=== PATIENT | female | born 1960 | race African-American/Black ===

== ENCOUNTER 2017-06-04 07:42 | Observation (INO) ==
[2017-06-04] MEDS ORDERED: HYDROmorphone 2 MG/1 ML VIAL IV STA (08:04)
[2017-06-04] MEDS ORDERED: ONDANSETRON 4 MG/2 ML VIAL IV STA (08:04)
--- NOTE | 2017-06-04 08:11 | Emergency Department Note ---
Arrival - Arrival Chief Complaint: Abdominal / Flank Pain Stated Complaint: stomach issue/nausea and vomiting ED Nursing Triage Note: llq abd pain with n/v that started yesterday. Mode of Arrival: Ambulatory Limitations: No Limitations Source: Patient, RN Notes Reviewed - History of Present Illness HPI Narrative: Patient is a 56-year-old black female routinely followed by Dr. Bowens who is seen today complaining of left lower quadrant abdominal pain. The patient was seen 2 days ago with the same complaint underwent a CT scan of the abdomen which revealed enlarging lymph nodes in her left lower quadrant in the periaortic area. Patient denies nausea or vomiting. Pain is unrelieved. Patient is scheduled to see Dr. Bowens this week. Onset (ago): week(s) Allergies/Adverse Reactions: Allergies Allergy/AdvReac Type Severity Reaction Status Date / Time No Known Allergies Allergy Verified 05/29/17 07:42 Home Medications: Home Medications Medication Instructions Recorded Confirmed Type Amlodipine Besylate 10 mg PO DAILY 06/29/16 06/04/17 History Loratadine Tab [Claritin Tab] 10 mg PO DAILY 06/29/16 06/04/17 History Ondansetron Odt Tab [Zofran Odt] 4 mg PO Q6H PRN 06/29/16 06/04/17 History Pantoprazole Tab [Protonix Tab] 40 mg PO BID 06/29/16 06/04/17 History Potassium Chloride Cap/Tab [K Dur] 20 meq PO BID 06/29/16 06/04/17 History Naloxegol Oxalate [Movantik] 25 mg PO DAILY #30 tablet 12/30/16 06/04/17 Rx Amitriptyline [Elavil] 10 mg PO DAILY 06/04/17 06/04/17 History Hydrocodone/Acetaminophen [[place] 1 each PO QID PRN 06/04/17 06/04/17 History 10-325 Tablet] Polyethylene Glycol Powder 17 gm PO QAM 06/04/17 06/04/17 History [Miralax] Zolpidem Tartrate [Ambien Cr] 12.5 mg PO BEDTIME 06/04/17 06/04/17 History Review of System - Review of System 12 point system: reviewed and no additional remarkable complaints except as stated - Review of System Constitutional: Absent: chills, fever Gastrointestinal: Present: abdominal pain. Absent: nausea, vomiting Medical,Surgical,& Family Hx - Medical History Cardio: History of: Hypertension Psychological: History of: Anxiety Disorders Respiratory: History of: Pulmonary Embolism Gastrointestinal: History of: Diverticulitis/ Diverticulosis, GERD Hematology: History of: Hematologic Cancer (non-Hodgkin's lymphoma) Other: History of: Miscellaneous Medical Problems (chronic back pain) - Surgical History Abdominal Surgeries: Surgical HX of: Cholecystectomy Reproductive Surgeries: Surgical HX of;: Hysterectomy Orthopedic Surgeries: Surgical HX of;: Orthopedic Surgery (carpal tunnel surgery ) - Social History Smoking Status: Never smoker Exam Vital Signs: Vital Signs Temperature 98.8 F 06/04/17 09:15 Pulse Rate 110 H 06/04/17 08:00 Respiratory Rate 18 06/04/17 08:00 Blood Pressure 146/94 06/04/17 08:00 O2 Sat by Pulse Oximetry 100 06/04/17 07:48 GENERAL: This is a well-nourished well-developed black female, thin in no apparent distress. VITAL SIGNS: Reviewed HEENT: Head is atraumatic and normocephalic. Pupils are equal round react to light. Extraocular movements are intact. Oropharynx is benign with moist mucous membranes. NECK: Neck is soft and supple without tenderness. There are no masses. There is no lymphadenopathy. LUNGS: Lungs are clear to auscultation. Chest rises symmetrically. There is no chest wall tenderness. CV: Heart is regular rate and rhythm without murmurs rubs or gallops. ABDOMEN: Abdomen is soft, tender to palpation left lower quadrant without rebound or guarding. There are no abdominal abnormal masses palpated. There is no organomegaly. Bowel sounds are present and active. SKIN: Skin is warm and dry. No rash. EXTREMITIES: Patient has full range of motion without tenderness. There is no pedal edema. NEUROLOGIC: Awake alert and oriented 4. Cranial nerves II through XII are grossly intact. Motor is 5 over 5 in all extremities bilaterally. Course - Consultations Consultation #1: Patient will be admitted to Dr. Bowens. Initial orders written for him. Care will be assumed by oncology upon arrival to the bob. Time: 10:13 Results - Labs CBC & BMP: 06/04/17 09:14 06/04/17 09:14 Lab Results: I have reviewed the patients labs - Diagnostic Findings Procedure: Abdominal x-ray: image reviewed by me (Nonspecific gas pattern, no free air, gas in the rectum.) Disposition Clinical Impression: CLL (chronic lymphocytic leukemia), Pelvic lymphadenopathy, Intractable left lower quadrant abdominal pain, Pyuria Case discussed with: patient Disposition: Still a Patient Condition: Stable
--- NOTE | 2017-06-04 09:00 | XRay Report ---
Abdomen series complete. Indication: Left lower quadrant abdominal pain. Comparison: June 02, 2017. The heart is normal in size. The lung bases are clear. No free air is identified. Surgical clips are noted in the right upper quadrant. The bowel gas pattern is normal. Surgical clips are noted within the pelvis. Numerous vascular calcifications are seen within the pelvis. Post operative changes with hardware present at the lower lumbar spine. Impression: No acute intra-abdominal process is seen. PROCEDURE INTERPRETED AT [facility] DEPARTMENT OF RADIOLOGY Final Report Signed by: Dr. Elsy Lees
[2017-06-04] MEDS ORDERED: HYDROmorphone 2 MG/1 ML VIAL ONE (09:22)
[2017-06-04] MEDS ORDERED: ONDANSETRON 4 MG/2 ML VIAL ONE (09:22)
[2017-06-04 09:28] LABS: Basophils % 0.3 % (0.0-0.8); Eosinophils % 0.1 % (0.00-10.9); Hematocrit 28.8 VOL% (35.7-47.0); Hemoglobin 10.2 GM/DL (12.0-16.0); Immature Granulocytes % 0.3 %; Immature Granulocytes Absolute 0.02 #; Lymphocytes # 3.2 10*3/uL (1.4-4.0); Lymphocytes % 46.9 % (21.3-54.2); Mean Corpuscular HGB Conc 35.4 GM/DL (32-36); Mean Corpuscular Hemoglobin 28 PG (27-34); Mean Corpuscular Volume 78.3 FL (87-102); Mean Platelet Volume 9.1 FL (9.6-12.0); Monocytes # 0.5 10*3/uL (0.11-0.8); Monocytes % 7.1 % (1.7-12.7); Neutrophils # 3.1 10*3/uL (1.4-7.4); Neutrophils % 45.3 % (38.7-73.9); Platelet Count 228 T/CUMM (130-400); Red Blood Count 3.68 MC/CUMM (3.8-5.5); Red Cell Distribution Width 16.9 % (9.3-17.3); White Blood Count 6.9 T/CUMM (4-12)
[2017-06-04 09:45] LABS: Apearance,Urine CLOUDY (Clear); Bacteria,Urine Occasional /HPF (Few); Bilirubin,Urine Negative (Negative); Blood, Urine Negative (Negative); Glucose,Urine (UA) 50 mg/dL (Negative); Ketones,Urine Negative (Negative); Mucus,Urine Occasional /LPF (Occasional); Nitrite,Urine Negative (Negative); Protein,Urine 100 MG/DL; RBC,Urine 6 /HPF (0-4); Squamous Epithelial Cell,Urine Moderate /HPF (0-10); Urine Color Yellow (Yellow); Urine Urobilinogen < 2.0 EU/DL (0.2-1.0); WBC,Urine 9 /HPF (0-6)
[2017-06-04 09:53] LABS: Albumin 4.4 G/DL (3.4-5.0); Bilirubin,Total 0.5 MG/DL (0.2-1.0); Calcium 9.3 MG/DL (8.5-10.1); Osmolality,Calculated 271.1 MOS/KG (273-304); Potassium 3.4 MMOL/L (3.5-5.1); Total Protein 8.2 G/DL (6.4-8.3)
[2017-06-04] MEDS ORDERED: cefTRIAXone 1,000 MG in SODIUM CHLORIDE 0.9% 100 ML IV STA (10:13)
[2017-06-04] MEDS ORDERED: cefTRIAXone 1,000 MG VIAL ONE (10:41)
[2017-06-04] MEDS ORDERED: chlorproMAZINE 25 MG TABLET PO PRN (12:00)
[2017-06-04] MEDS ORDERED: MYLANTA/LIDO VISC 2:1 300 ML BOTTLE SWISH/SWAL PRN (12:00)
[2017-06-04] MEDS ORDERED: LOPERAMIDE 2 MG CAPSULE PO PRN ×2 (12:00)
[2017-06-04] MEDS ORDERED: traMADol 50 MG TABLET PO PRN (12:00)
[2017-06-04] MEDS ORDERED: BENZTROPINE 2 MG/2 ML AMP IV PRN (12:00)
[2017-06-04] MEDS ORDERED: PROMETHAZINE INJ 25 MG in SODIUM CHLORIDE 0.9% 50 ML IV PRN (12:00)
[2017-06-04] MEDS ORDERED: MAGNESIUM HYDROXIDE SUSP 30 ML UDCUP PO PRN (12:00)
[2017-06-04] MEDS ORDERED: chlorproMAZINE INJ 25 MG in SODIUM CHLORIDE 0.9% 100 ML IV PRN (12:00)
[2017-06-04] MEDS ORDERED: TEMAZEPAM 7.5 MG CAPSULE PO PRN (12:00)
[2017-06-04] MEDS ORDERED: MYLANTA/LIDO VISC 2:1 300 ML BOTTLE SWISH/SPIT PRN (12:00)
[2017-06-04] MEDS ORDERED: chlorproMAZINE INJ 50 MG in SODIUM CHLORIDE 0.9% 100 ML IV PRN (12:00)
[2017-06-04] MEDS ORDERED: ALPRAZolam 0.25 MG TABLET PO PRN (12:00)
[2017-06-04] MEDS ORDERED: ACETAMINOPHEN 325 MG TABLET PO PRN (12:00)
[2017-06-04] MEDS ORDERED: guaiFENesin 200 MG/10 ML UDCUP PO PRN (12:00)
[2017-06-04] MEDS ORDERED: LACTULOSE 20 GM/30 ML UDCUP PO PRN (12:00)
[2017-06-04] MEDS ORDERED: diphenhydrAMINE CAP 25 MG CAPSULE PO PRN (12:00)
[2017-06-04] MEDS ORDERED: ALUMINUM/MAGNES/SIMETH MAX STR 30 ML UDCUP PO PRN (12:00)
[2017-06-04] MEDS ORDERED: ONDANSETRON 4 MG/2 ML VIAL IV PRN (12:00)
[2017-06-04] MEDS: SODIUM CHLORIDE 0.9% 1,000 ML IV SCH (15:15)
[2017-06-04] MEDS: HYDROmorphone 2 MG/1 ML VIAL IV PRN (17:55)
[2017-06-04] MEDS ORDERED: amLODIPine 10 MG TABLET PO ONE (20:37)
[2017-06-05] MEDS: SODIUM CHLORIDE 0.9% 1,000 ML IV SCH ×2 (01:25→15:43)
[2017-06-05] MEDS ORDERED: hydrALAZINE 25 MG TABLET PO SCH (02:00)
[2017-06-05] MEDS ORDERED: hydrALAZINE 25 MG TABLET PO PRN (03:30)
[2017-06-05 06:36] LABS: Basophils % 0.1 % (0.0-0.8); Eosinophils % 0.4 % (0.00-10.9); Hematocrit 26.7 VOL% (35.7-47.0); Hemoglobin 9.4 GM/DL (12.0-16.0); Immature Granulocytes % 0.3 %; Immature Granulocytes Absolute 0.02 #; Lymphocytes # 3.5 10*3/uL (1.4-4.0); Lymphocytes % 47.9 % (21.3-54.2); Mean Corpuscular HGB Conc 35.2 GM/DL (32-36); Mean Corpuscular Hemoglobin 27 PG (27-34); Mean Corpuscular Volume 77.8 FL (87-102); Mean Platelet Volume 9.1 FL (9.6-12.0); Monocytes # 0.9 10*3/uL (0.11-0.8); Monocytes % 12.9 % (1.7-12.7); Neutrophils # 2.8 10*3/uL (1.4-7.4); Neutrophils % 38.4 % (38.7-73.9); Platelet Count 209 T/CUMM (130-400); Red Blood Count 3.43 MC/CUMM (3.8-5.5); Red Cell Distribution Width 16.9 % (9.3-17.3); White Blood Count 7.2 T/CUMM (4-12)
[2017-06-05 07:22] LABS: Eosinophils 1 % (0-10); Giant Platelets Few; Hypochromasia 1+; Lymphocytes 44 % (20-55); Microcytosis Slight; Ovalocytes Slight; Platelet Estimate Adequate; Segmented Neutrophils 51 % (50-85); Total Cells Counted 100
[2017-06-05 07:23] LABS: Atypical Lymphocytes Few
[2017-06-05] MEDS: HYDROmorphone 2 MG/1 ML VIAL IV PRN ×2 (07:23→18:54)
--- NOTE | 2017-06-05 07:54 | Oncology History&Physical ---
History of Present Illness Chief complaint: Persistent abdominal pain unrelated to lymphoma History of present illness: Ms. 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 She has been on various treatments with the most recent one being Rituxan and bendamustine. She last received Rituxan 650 mg IV in June 2015 and bendamustine 160 mg IV daily 2 days at that same time. She has been to [facility] where she saw Dr. Patterson, who recommended IBRUTINIB 420 mg daily as the next treatment. However, she had an excellent and prolonged response to bendamustine and she really does not have a great deal of lymphadenopathy even at this time. She does have progressive cervical adenopathy and also her abdominal CT demonstrates abdominal and pelvic adenopathy but it is not bulky disease. She has had no splenomegaly. In addition she has had very little axillary adenopathy. The last time I saw her she had some lesions on her left breast and she was concerned about cancer but these were areas of folliculitis that cleared with topical therapy. Her last previous CT of the abdomen and pelvis was December 03, 2016. It was done at [facility]. The current CT was compared to previous ones done here and demonstrated progressive pelvic adenopathy which does not surprise me but again it is not bulky disease. This patient has had multiple workups for various types of abdominal pain in different locations. These have been done at [facility]. She ultimately had an appendectomy in late March or early April at [facility] under laparoscopic guidance that did not really alter her abdominal pain. She also has had upper and lower endoscopies. Gastroscopy was done January 23, 2017 and colonoscopy was done January 19, 2017 and neither 1 of these revealed any significant abnormalities. She had an appointment to see me later this week and I was making plans to resume chemotherapy because of the progressive adenopathy. However, I do not think it has anything to do with her abdominal pain. In addition of the pelvic adenopathy, she has had increasing cervical adenopathy. Past medical history: Allergies: She has no known allergies. Her past medical history is positive for depression, hyperlipidemia, hypertension, anxiety, TIAs, colon polyps and pulmonary emboli. Prior operations include the appendectomy earlier this year as well as a hysterectomy in 2004 and back surgery in 2017. Family history: A brother has diabetes mellitus and hypertension and "blood problems". Her mother has hypertension and "blood problems". Social history: She has never smoked. She does not use alcohol. Review of systems: General: Positive for generalized weakness, malaise and an 8 pound weight loss over about 6 months. No recent history of fever or night sweats. Eyes: No history of abnormalities of the lids or conjunctivae. She has had blurred vision. ENT: Positive for a lump in the throat. Negative for dysphagia, hoarseness, mouth sores, odynophagia and sore tongue. Respiratory: Negative for cough, pleuritic chest pain or painful respirations. Cardiovascular: Positive for chest pain and irregular heartbeat but negative for coronary artery disease or congestive heart failure. GI: Positive for abdominal pain and bloating. See physical examination. Negative for palpable abdominal mass, nausea or vomiting although she says that she vomited last night. Neurologic: Negative for syncope or focal muscle weakness in spite of the history of TIA. No history of seizures, convulsions or paralysis. Reproductive: Negative for breast lumps but positive for folliculitis on her left breast. She is postmenopausal. Lymphatic: Positive for increasing bilateral cervical adenopathy but not for axillary adenopathy or inguinal adenopathy. Hematologic: She has a history of chronic anemia but no thrombocytopenia or neutropenia. Skin: No history of rashes other than the resolving folliculitis on her left breast. Physical examination: General: The patient really does not appear to be in any acute distress although she complains of abdominal pain. Eyes: Normal lids and conjunctivae. ENT: Her oral mucosa and pharynx are normal. Her hearing is normal. Her trachea is midline and she has no neck masses. Lungs: Breath sounds are normal without rubs, rales or rhonchi. There is symmetrical unlabored chest motion with respiration. Cardiovascular: Her heart rhythm is regular without murmur, gallop or rub. There is no jugular venous distention, clubbing or cyanosis. Abdomen: She has several scars on her abdomen including recent laparoscopic appendectomy scars. Bowel sounds are normal. I palpate no abdominal masses or organomegaly and no ascites. Musculoskeletal: There is no focal muscle atrophy or bone or joint deformity. Neurologic: Cranial nerves II through XII are intact. The no focal neurologic deficits. Nodes: The patient has bilateral cervical adenopathy both in the anterior and posterior chains as well as submandibular adenopathy. There is perhaps some slight supraclavicular adenopathy. I palpate one enlarged lymph node in the right axilla but no other adenopathy. Breasts: No masses. Psychiatric: The patient is anxious as usual and somewhat apprehensive. Impression: Persistent abdominal pain that in my opinion is unrelated to the patient's lymphoma and I think is made worse by the fact that she has a low pain threshold. Diffuse small lymphocytic non-Hodgkin's lymphoma responding well to bendamustine. CD20 positive. History of anxiety. History of depression. History of colon polyps. Recent appendectomy. This patient has a long history of abdominal pain that is unrelated to her lymphoma. My plan is to discharge her today and arrange for her to return for chemotherapy later this week. I will proceed with Rituxan 800 mg IV today along with dexamethasone 40 mg IV. My plan will be to proceed with bendamustine daily 2 days at a dose of 160 mg IV each day for 2 days repeated every 4 weeks. I am discharging her after this treatment today using dexamethasone and Rituxan I will set her up for outpatient chemotherapy with bendamustine at my office and a follow-up office visit to see me in about 3 weeks with CBC, CMP and LDH. Home Medications Medication Instructions Recorded Confirmed Type Amlodipine Besylate 10 mg PO DAILY 06/29/16 06/04/17 History Loratadine Tab [Claritin Tab] 10 mg PO DAILY 06/29/16 06/04/17 History Ondansetron Odt Tab [Zofran Odt] 4 mg PO Q6H PRN 06/29/16 06/04/17 History Pantoprazole Tab [Protonix Tab] 40 mg PO BID 06/29/16 06/04/17 History Potassium Chloride Cap/Tab [K Dur] 20 meq PO BID 06/29/16 06/04/17 History Naloxegol Oxalate [Movantik] 25 mg PO DAILY #30 tablet 12/30/16 06/04/17 Rx Amitriptyline [Elavil] 10 mg PO DAILY 06/04/17 06/04/17 History Hydrocodone/Acetaminophen [[place] 1 each PO QID PRN 06/04/17 06/04/17 History 10-325 Tablet] Polyethylene Glycol Powder 17 gm PO QAM 06/04/17 06/04/17 History [Miralax] Zolpidem Tartrate [Ambien Cr] 12.5 mg PO BEDTIME 06/04/17 06/04/17 History Allergies Allergy/AdvReac Type Severity Reaction Status Date / Time No Known Allergies Allergy Verified 05/29/17 07:42 Medical,Surgical,& Family Hx - Medical History Cardio: History of: Hypertension Psychological: History of: Anxiety Disorders Respiratory: History of: Pulmonary Embolism Gastrointestinal: History of: Diverticulitis/ Diverticulosis, GERD No history of: GI Problems Hematology: History of: Hematologic Cancer (non-Hodgkin's lymphoma) Other: History of: Cancer (CLL), Miscellaneous Medical Problems (chronic back pain) - Surgical History Abdominal Surgeries: Surgical HX of: Cholecystectomy Reproductive Surgeries: Surgical HX of;: Hysterectomy Orthopedic Surgeries: Surgical HX of;: Orthopedic Surgery (carpal tunnel surgery ) - Social History Smoking Status: Never smoker Frequency of Alcohol Use: None Type of Drug Use: None Exam - Constitutional Vitals: Period Temp Pulse Resp BP Sys/Dunne Pulse Ox Last 24 Hr 97 F-98.8 F 85-110 16-22 146-190/89-109 93-100 Results - Labs CBC & BMP: 06/05/17 05:57 06/04/17 09:14
[2017-06-05] MEDS: amLODIPine 10 MG TABLET PO SCH (08:57)
[2017-06-05] MEDS ORDERED: RITUXIMAB IV ONE (13:30)
[2017-06-05] MEDS ORDERED: FOSAPREPITANT 150 MG in SODIUM CHLORIDE 0.9% 100 ML IV ONE (13:30)
[2017-06-05] MEDS ORDERED: DEXAMETHASONE INJ 40 MG in SODIUM CHLORIDE 0.9% 50 ML IV ONE (13:30)
[2017-06-05] MEDS ORDERED: SODIUM CHLORIDE 0.9% IV ONE (13:30)
[2017-06-05] MEDS ORDERED: PALONOSETRON 0.25 MG/5 ML VIAL IV ONE (13:30)
[2017-06-05] MEDS ORDERED: ACETAMINOPHEN 325 MG TABLET PO ONE (13:35)
[2017-06-05] MEDS ORDERED: diphenhydrAMINE CAP 50 MG CAPSULE PO ONE (13:35)
[2017-06-06] MEDS: amLODIPine 10 MG TABLET PO SCH (07:57)
[2017-06-06 08:32] VITALS: BP 141/98
== END 2017-06-06 10:25 | disposition home or self-care (01) ==
LOC: N.ED 07:42 → N.EDINP 07:42 → N.4E 11:59
PROVIDERS: ADMIT Specialist; ATTEND Specialist

== ENCOUNTER 2017-06-10 08:45 | Inpatient (IN) ==
[2017-06-10 06:59] LABS: Basophils % 0.2 % (0.0-0.8); Eosinophils # 0.1 10*3/uL (0.0-0.87); Eosinophils % 0.9 % (0.00-10.9); Immature Granulocytes % 0.3 %; Immature Granulocytes Absolute 0.02 #; Lymphocytes # 1.3 10*3/uL (1.4-4.0); Lymphocytes % 20.4 % (21.3-54.2); Mean Corpuscular HGB Conc 36.5 GM/DL (32-36); Mean Corpuscular Hemoglobin 28 PG (27-34); Mean Corpuscular Volume 77.1 FL (87-102); Mean Platelet Volume 9.6 FL (9.6-12.0); Monocytes # 0.2 10*3/uL (0.11-0.8); Monocytes % 3.5 % (1.7-12.7); Neutrophils # 4.9 10*3/uL (1.4-7.4); Neutrophils % 74.7 % (38.7-73.9); Platelet Count 220 T/CUMM (130-400); Red Blood Count 1.92 MC/CUMM (3.8-5.5); Red Cell Distribution Width 17.1 % (9.3-17.3); White Blood Count 6.6 T/CUMM (4-12)
[2017-06-10 07:04] LABS: Apearance,Urine Slightly Hazy (Clear); Bacteria,Urine Occasional /HPF (Few); Bilirubin,Urine Negative (Negative); Blood, Urine Small mg/dL (Negative); Glucose,Urine (UA) Negative (Negative); Ketones,Urine Negative (Negative); Mucus,Urine Occasional /LPF (Occasional); Nitrite,Urine Negative (Negative); Protein,Urine Negative; RBC,Urine 4 /HPF (0-4); Squamous Epithelial Cell,Urine Occasional /HPF (0-10); Urine Color Yellow (Yellow); Urine Urobilinogen < 2.0 EU/DL (0.2-1.0); WBC,Urine 33 /HPF (0-6)
[2017-06-10 07:13] LABS: Hematocrit 14.8 VOL% (35.7-47.0); Hemoglobin 5.4 GM/DL (12.0-16.0)
[2017-06-10 07:25] LABS: Alanine Aminotransferase 10 U/L (13-56); Albumin 3.5 G/DL (3.4-5.0); Alkaline Phosphatase 76 U/L (45-117); Aspartate Amino Transferase 11 U/L (0-37); Bilirubin,Total < 0.39 MG/DL (0.2-1.0); Blood Urea Nitrogen 29 MG/DL (7-18); Calcium 7.3 MG/DL (8.5-10.1); Glucose 102 MG/DL (74-106); Osmolality,Calculated 278.8 MOS/KG (273-304); Sodium 137 MMOL/L (136-145)
[2017-06-10 07:26] LABS: Lactic Acid 0.7 MMOL/L (0.4-2.0)
[2017-06-10 08:05] LABS: Eosinophils 1 % (0-10); Giant Platelets Few; Hypochromasia 1+; Lymphocytes 15 % (20-55); Microcytosis Slight; Ovalocytes Slight; Platelet Estimate Adequate; Segmented Neutrophils 82 % (50-85); Total Cells Counted 100
--- NOTE | 2017-06-10 08:44 | Emergency Department Note ---
Fernando Pineda Brittany, am scribing for, and in the presence of, Rinku Kimble MD 06:12. Lamin Pineda Doug C, MD, personally performed the services described in this documentation, ascribed by Maryuri King in my presence, and it is both accurate and complete [id number] . Arrival - Arrival Chief Complaint: Abdominal / Flank Pain Stated Complaint: stomach issues ED Nursing Triage Note: AMB TO ER WITH COMPLAINTS OF STOMACH CRAMPS, NAUSEA AND DIARRHEA SINCE LAST MONDAY AFTER DISCHARGE FROM HOSPITAL. PATIENT STATES SHE STAYED OVERNIGHT FOR SAME SYMPTOMS BUT ONLY GOT ONE MEDICINE AND IT DIDNT HELP ANY. Mode of Arrival: Ambulatory Limitations: No Limitations Source: Patient, RN Notes Reviewed Time Seen by Provider: 06/10/17 06:00 - History of Present Illness HPI Narrative: Patient 56-year-old black female presents emergency room complaining of abdominal pain. Patient states this has been going off and on for almost a year now. It has gotten more intense in the last 3 months and patient states she was recently admitted to the hospital and discharged for same problem. Patient states the pain is diffuse but mostly in her upper abdomen. She has nausea, vomiting and diarrhea with this as well as weight loss. She does have a history of non-Hodgkin's lymphoma and is receiving chemotherapy. She has not had any fever or chills associated with this. She denies any blood in her stool or had any melena. Allergies/Adverse Reactions: Allergies Allergy/AdvReac Type Severity Reaction Status Date / Time No Known Allergies Allergy Verified 06/10/17 05:24 Home Medications: Home Medications Medication Instructions Recorded Confirmed Type Amlodipine Besylate 10 mg PO DAILY 06/29/16 06/04/17 History Loratadine Tab [Claritin Tab] 10 mg PO DAILY 06/29/16 06/06/17 History Ondansetron Odt Tab [Zofran Odt] 4 mg PO Q6H PRN 06/29/16 06/06/17 History Pantoprazole Tab [Protonix Tab] 40 mg PO BID 06/29/16 06/04/17 History Amitriptyline [Elavil] 10 mg PO DAILY 06/04/17 06/06/17 History Hydrocodone/Acetaminophen [[place] 1 each PO QID PRN 06/04/17 06/06/17 History 10-325 Tablet] Zolpidem Tartrate [Ambien Cr] 12.5 mg PO BEDTIME 06/04/17 06/06/17 History Dicyclomine Cap/Tab [Bentyl 20 mg PO QID PRN #20 tablet 06/07/17 Rx Cap/Tab] Ondansetron [Ondansetron Odt] 8 mg PO Q4H PRN #10 tab.rapdis 06/07/17 Rx Levofloxacin Tab [Levaquin Tab] 250 mg PO DAILY #7 tablet 06/10/17 Rx Review of System - Review of System 12 point system: reviewed and no additional remarkable complaints except as stated - Review of System Constitutional: Absent: chills, fever Eyes: Absent: vision change Head/Ears/Nose/Throat: Absent: nasal drainage, sore throat Respiratory: Absent: respiratory distress Cardiovascular: Absent: chest pain Gastrointestinal: Present: abdominal pain, nausea, vomiting, diarrhea. Absent: melena, hematochezia Genitourinary female: Absent: dysuria, frequency, urgency Musculoskeletal: Absent: arm pain, back pain, leg pain, neck pain Skin: Absent: rash Neurological: Absent: headache Psychiatric: Absent: anxiety, depression Hematological/Lymphatic: Absent: easy bleeding, easy bruising Medical,Surgical,& Family Hx - Medical History Cardio: History of: Hypertension Psychological: History of: Anxiety Disorders Respiratory: History of: Pulmonary Embolism Gastrointestinal: History of: Diverticulitis/ Diverticulosis, GERD No history of: GI Problems Hematology: History of: Hematologic Cancer (non-Hodgkin's lymphoma) Other: History of: Cancer (CLL), Miscellaneous Medical Problems (chronic back pain) - Surgical History Abdominal Surgeries: Surgical HX of: Appendectomy, Cholecystectomy Reproductive Surgeries: Surgical HX of;: Hysterectomy Orthopedic Surgeries: Surgical HX of;: Orthopedic Surgery (carpal tunnel surgery ) - Social History Smoking Status: Never smoker Frequency of Alcohol Use: None Type of Drug Use: None Exam Vital Signs: Vital Signs Temperature 97.3 F L 06/10/17 05:18 Pulse Rate 92 H 06/10/17 05:18 Respiratory Rate 18 06/10/17 05:18 Blood Pressure 122/92 06/10/17 05:18 O2 Sat by Pulse Oximetry 97 06/10/17 05:18 - General General appearance: alert, in no apparent distress - Head Head exam: Present: atraumatic, normocephalic, normal inspection - Eye Eye exam: Present: PERRL, EOMI - ENT ENT exam: Present: normal exam, normal oropharynx, mucous membranes moist - Neck Neck exam: Present: normal inspection, full ROM, trachea midline - Chest Chest inspection: Present: normal inspection, symmetric chest wall rise - Respiratory Respiratory exam: Present: normal lung sounds bilaterally. Absent: respiratory distress - Cardiovascular Cardiovascular exam: Present: regular rate, normal rhythm, normal heart sounds. Absent: murmur, rubs, gallop - Abdominal Exam Abdominal exam: Present: soft, tenderness (Diffuse abdominal tenderness to palpation), normal bowel sounds. Absent: distention - Extremities Exam Extremities exam: Present: normal inspection. Absent: pedal edema - Back Exam Back exam: Present: normal inspection - Neurological Exam Neurological exam: Present: alert, oriented X3, CN II-XII intact. Absent: motor sensory deficit - Psychiatric Psychiatric exam: Present: normal affect, normal mood - Skin Skin exam: Present: warm, dry Course Course Narrative: Patient's clinical presentation and laboratory findings were discussed with Dr. Bowens. Patient certainly has a urinary tract infection for which I will begin treatment for her. He asked that she follow-up with her GI doctors at [facility] concerning her persistent abdominal pain and he is going to admit her throughout patient give her 3 units of packed red blood cells. Results - Labs CBC & BMP: 06/10/17 06:39 06/10/17 06:39 Lab Results: I have reviewed the patients labs Labs: Laboratory Tests 06/10/17 06:39 Urine Color Yellow Urine Appearance Slightly hazy Urine pH 5.0 Ur Specific [place] 1.010 Urine Protein Negative Urine Glucose (UA) Negative Urine Ketones Negative Urine Blood Small Urine Nitrate Negative Urine Bilirubin Negative Urine Urobilinogen < 2.0 H Urine Leukocytes Large H Urine RBC 4 Urine WBC 33 Ur Squamous Epith Cells Occasional Urine Bacteria Occasional Urine Mucus Occasional Laboratory Tests 06/10/17 06:39 WBC 6.6 RBC 1.92 L Hgb 5.4 L* Hct 14.8 L* MCV 77.1 L MCHC 36.5 H Plt Count 220 Neut % (Auto) 74.7 H Lymph % (Auto) 20.4 L Lymph # (Auto) 1.3 L Laboratory Tests 06/10/17 06:39 Sodium 137 Potassium 3.0 L Chloride 103 Carbon Dioxide 24 BUN 29 H Creatinine 2.20 H Glucose 102 Lactic Acid 0.7 Calcium 7.3 L D ALT 10 L Albumin/Globulin Ratio 1.0 L Lipase 749.0 H Laboratory Tests 06/10/17 06/10/17 06/10/17 06:39 06:39 06:39 Total Counted 100 Segmented Neutrophils 82 Lymphocytes 15 L Monocytes 2 Eosinophils 1 Platelet Estimate Adequate Giant Platelets Few Hypochromasia 1+ Microcytosis Slight Ovalocytes Slight ESR Westergren 33 H C-Reactive Protein 1.80 H Disposition Clinical Impression: Abdominal pain, Anemia, History of non-Hodgkin's lymphoma Case discussed with: patient Disposition: Still a Patient Condition: Stable Prescriptions: Levofloxacin Tab [Levaquin Tab] 250 mg PO DAILY #7 tablet Time of Disposition: 08:42
[~2017-06-10 08:45] MED LIST: ONDANSETRON 4 MG/2 ML VIAL IV STA; ONDANSETRON 4 MG/2 ML VIAL ONE; SODIUM CHLORIDE 0.9% 1,000 ML IV STA; SODIUM CHLORIDE 0.9% 250 ML IV PRN
--- NOTE | 2017-06-10 10:36 | Oncology Progress Note ---
Oncology Subjective PN Interval history: This is a progress note on Ms. Lyle who is here outpatient for blood transfusion. She has non-Hodgkin's lymphoma and she has a history of GI bleeding but she is followed at [place] her GI problems. She has chronic GI pains of various types. Her hemoglobin today is 5.4 so we are going to transfuse 3 units of packed red cells. Her white cell count is normal at 6600 and her platelet count is 220, 000. She has an elevated lipase of 749. In addition, her serum creatinine today is 2.2. This is a portion of my dictation from her last admission of less than a month ago: Ms. 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 She has been on various treatments with the most recent one being Rituxan and bendamustine. She last received Rituxan 650 mg IV in June 2015 and bendamustine 160 mg IV daily 2 days at that same time. She has been to [place] where she saw Dr. Patterson, who recommended IBRUTINIB 420 mg daily as the next treatment. However, she had an excellent and prolonged response to bendamustine and she really does not have a great deal of lymphadenopathy even at this time. She does have progressive cervical adenopathy and also her abdominal CT demonstrates abdominal and pelvic adenopathy but it is not bulky disease. She has had no splenomegaly. In addition she has had very little axillary adenopathy. This patient has had a significant drop in her hemoglobin and I am concerned about intra-abdominal pathology. I do not intend to take over her evaluation by her culled fruit packer and surgeon at [place] but I am going to go ahead and order a CT of her abdomen and pelvis with contrast tomorrow. In addition, I am repeating her lipase tomorrow because it is elevated. Past medical history: Allergies: She has no known allergies. Her past medical history is positive for depression, hyperlipidemia, hypertension, anxiety, TIAs, colon polyps and pulmonary emboli. Prior operations include the appendectomy earlier this year as well as a hysterectomy in 2005 and back surgery in 2017. Family history: A brother has diabetes mellitus and hypertension and "blood problems". Her mother has hypertension and "blood problems". Social history: She has never smoked. She does not use alcohol. Review of systems: General: Positive for generalized weakness, malaise and an 8 pound weight loss over about 6 months. No recent history of fever or night sweats. Eyes: No history of abnormalities of the lids or conjunctivae. She has had blurred vision. ENT: Positive for a lump in the throat. Negative for dysphagia, hoarseness, mouth sores, odynophagia and sore tongue. Respiratory: Negative for cough, pleuritic chest pain or painful respirations. Cardiovascular: Positive for chest pain and irregular heartbeat but negative for coronary artery disease or congestive heart failure. GI: Positive for abdominal pain and bloating. See physical examination. Negative for palpable abdominal mass, nausea or vomiting although she says that she vomited last night. Neurologic: Negative for syncope or focal muscle weakness in spite of the history of TIA. No history of seizures, convulsions or paralysis. Reproductive: Negative for breast lumps but positive for folliculitis on her left breast. She is postmenopausal. Lymphatic: Positive for increasing bilateral cervical adenopathy but not for axillary adenopathy or inguinal adenopathy. Hematologic: She has a history of chronic anemia but no thrombocytopenia or neutropenia. Skin: No history of rashes other than the resolving folliculitis on her left breast. Physical examination: General: The patient really does not appear to be in any acute distress although she complains of abdominal pain. Eyes: Normal lids and conjunctivae. ENT: Her oral mucosa and pharynx are normal. Her hearing is normal. Her trachea is midline and she has no neck masses. Lungs: Breath sounds are normal without rubs, rales or rhonchi. There is symmetrical unlabored chest motion with respiration. Cardiovascular: Her heart rhythm is regular without murmur, gallop or rub. There is no jugular venous distention, clubbing or cyanosis. Abdomen: She has several scars on her abdomen including recent laparoscopic appendectomy scars. Bowel sounds are normal. I palpate no abdominal masses or organomegaly and no ascites. Musculoskeletal: There is no focal muscle atrophy or bone or joint deformity. Neurologic: Cranial nerves II through XII are intact. The no focal neurologic deficits. Nodes: The patient has bilateral cervical adenopathy both in the anterior and posterior chains as well as submandibular adenopathy. There is perhaps some slight supraclavicular adenopathy. I palpate one enlarged lymph node in the right axilla but no other adenopathy. Breasts: No masses. Psychiatric: The patient is anxious as usual and somewhat apprehensive. Impression: Significant drop in hemoglobin, probably due to GI blood loss This patient has multifactorial abdominal pain, some which is purely gastrointestinal and not in my field of expertise but she has an elevated lipase on this admission and probably has pancreatitis. This patient has a CD20 positive non-Hodgkin's lymphoma but is not currently on active treatment Exam - Constitutional Vitals: Period Temp Pulse Resp BP Sys/Dunne Pulse Ox Last 24 Hr 97.3 F-97.3 F 78-92 18-20 122-161/92-98 97-98 Results - Labs CBC & BMP: 06/11/17 04:48 06/11/17 04:48 Specialty Discharge - Follow Up or Referrals
[2017-06-10] MEDS ORDERED: LEVOFLOXACIN INJ 750 MG in PREMIX 1 EACH IV ONE (10:37)
--- NOTE | 2017-06-10 10:51 | XRay Report ---
History is abdominal pain Abdomen, 2 views Comparison 06/04/2017 There are clips in the right upper quadrant Mild air scattered in the bowel without small bowel dilatation, free air, or organomegaly seen Pelvic calcifications grossly unchanged Impression: Nonspecific bowel gas pattern PROCEDURE INTERPRETED AT [facility] DEPARTMENT OF RADIOLOGY Final Report Signed by: Dr. Stormy Lees
[2017-06-10] MEDS: HYDROmorphone 2 MG/1 ML VIAL IV PRN ×3 (11:03→19:28)
[2017-06-10] MEDS ORDERED: MAGNESIUM HYDROXIDE SUSP 30 ML UDCUP PO PRN (12:41)
[2017-06-10] MEDS ORDERED: chlorproMAZINE INJ 50 MG in SODIUM CHLORIDE 0.9% 100 ML IV PRN (12:41)
[2017-06-10] MEDS ORDERED: ACETAMINOPHEN 325 MG TABLET PO PRN (12:41)
[2017-06-10] MEDS ORDERED: LACTULOSE 20 GM/30 ML UDCUP PO PRN (12:41)
[2017-06-10] MEDS ORDERED: chlorproMAZINE 25 MG TABLET PO PRN (12:41)
[2017-06-10] MEDS ORDERED: MYLANTA/LIDO VISC 2:1 300 ML BOTTLE SWISH/SWAL PRN (12:41)
[2017-06-10] MEDS ORDERED: diphenhydrAMINE CAP 25 MG CAPSULE PO PRN (12:41)
[2017-06-10] MEDS ORDERED: guaiFENesin 200 MG/10 ML UDCUP PO PRN (12:41)
[2017-06-10] MEDS ORDERED: ALUMINUM/MAGNES/SIMETH MAX STR 30 ML UDCUP PO PRN (12:41)
[2017-06-10] MEDS ORDERED: LOPERAMIDE 2 MG CAPSULE PO PRN ×2 (12:41)
[2017-06-10] MEDS ORDERED: PROMETHAZINE INJ 25 MG in SODIUM CHLORIDE 0.9% 50 ML IV PRN (12:41)
[2017-06-10] MEDS ORDERED: TEMAZEPAM 7.5 MG CAPSULE PO PRN (12:41)
[2017-06-10] MEDS ORDERED: traMADol 50 MG TABLET PO PRN (12:41)
[2017-06-10] MEDS ORDERED: BENZTROPINE 2 MG/2 ML AMP IV PRN (12:41)
[2017-06-10] MEDS ORDERED: MYLANTA/LIDO VISC 2:1 300 ML BOTTLE SWISH/SPIT PRN (12:41)
[2017-06-10] MEDS ORDERED: ALPRAZolam 0.25 MG TABLET PO PRN (12:41)
[2017-06-10] MEDS ORDERED: chlorproMAZINE INJ 25 MG in SODIUM CHLORIDE 0.9% 100 ML IV PRN (12:41)
[2017-06-10] MEDS: ONDANSETRON 4 MG/2 ML VIAL IV PRN (12:57)
[2017-06-10] MEDS ORDERED: ONDANSETRON ODT 4 MG TABLET PO PRN ×2 (19:53)
[2017-06-10] MEDS: PANTOPRAZOLE 40 MG TABLET PO SCH (21:00)
[2017-06-10] MEDS: ZALEPLON 5 MG CAPSULE PO SCH (21:00)
[2017-06-10] MEDS: DEXTROSE 5% NACL 0.45% 1,000 ML IV SCH (23:21)
[2017-06-11] MEDS: HYDROmorphone 2 MG/1 ML VIAL IV PRN ×6 (01:27→22:08)
[2017-06-11] MEDS: DICYCLOMINE 20 MG TABLET PO PRN ×2 (03:20→09:12)
[2017-06-11 05:41] LABS: Basophils % 0.4 % (0.0-0.8); Eosinophils # 0.1 10*3/uL (0.0-0.87); Eosinophils % 1.1 % (0.00-10.9); Hematocrit 35.9 VOL% (35.7-47.0); Hemoglobin 13.1 GM/DL (12.0-16.0); Immature Granulocytes % 1.9 %; Immature Granulocytes Absolute 0.09 #; Lymphocytes # 0.5 10*3/uL (1.4-4.0); Lymphocytes % 10.8 % (21.3-54.2); Mean Corpuscular HGB Conc 36.5 GM/DL (32-36); Mean Corpuscular Hemoglobin 29 PG (27-34); Mean Corpuscular Volume 79.1 FL (87-102); Mean Platelet Volume 9.8 FL (9.6-12.0); Monocytes % 0.8 % (1.7-12.7); Platelet Count 151 T/CUMM (130-400); Red Blood Count 4.54 MC/CUMM (3.8-5.5); Red Cell Distribution Width 16.7 % (9.3-17.3); White Blood Count 4.7 T/CUMM (4-12)
[2017-06-11 06:22] LABS: Albumin 3.1 G/DL (3.4-5.0); Bilirubin,Total 1.1 MG/DL (0.2-1.0); Osmolality,Calculated 277.7 MOS/KG (273-304); Potassium 3.1 MMOL/L (3.5-5.1)
[2017-06-11 06:42] LABS: Lymphocytes 11 % (20-55); Platelet Estimate Normal; Segmented Neutrophils 88 % (50-85); Total Cells Counted 100
[2017-06-11 06:43] LABS: Giant Platelets Few; Hypochromasia 1+; Microcytosis Slight
[2017-06-11 08:44] LABS: Uric Acid 8.8 MG/DL (2.6-6.0)
[2017-06-11] MEDS: AMITRIPTYLINE 10 MG TABLET PO SCH (09:11)
[2017-06-11] MEDS: amLODIPine 10 MG TABLET PO SCH (09:11)
--- NOTE | 2017-06-11 09:11 | Oncology History&Physical ---
History of Present Illness History of present illness: Ms. Lyle is a 56 year old female anemia and lymphoma. This is a history and physical on Ms. Lyle who I decided to admit because of multiple problems including the fact that she has non-Hodgkin's lymphoma and she has a history of GI bleeding but she is followed at [place] her GI problems. She has chronic GI pains of various types. However, her hemoglobin yesterday was 5.4 so we transfused 3 units of packed red cells. Her white cell count is normal at 6600 and her platelet count is 220,000. She has an elevated lipase of 749. In addition, her serum creatinine today is 2.2. This is the reason we are dictating history and physical and admitting her is regular patient. This is a portion of my dictation from her last admission of less than a month ago: Ms. 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 She has been on various treatments with the most recent one being Rituxan and bendamustine. She last received Rituxan 650 mg IV in June 2015 and bendamustine 160 mg IV daily 2 days at that same time. She has been to [place] where she saw Dr. Patterson, who recommended IBRUTINIB 420 mg daily as the next treatment. However, she had an excellent and prolonged response to bendamustine and she really does not have a great deal of lymphadenopathy even at this time. She does have progressive cervical adenopathy and also her abdominal CT demonstrates abdominal and pelvic adenopathy but it is not bulky disease. She has had no splenomegaly. In addition she has had very little axillary adenopathy. This patient has had a significant drop in her hemoglobin and I am concerned about intra-abdominal pathology. I do not intend to take over her evaluation by her tennis director and surgeon at [place] but I am going to go ahead and order a CT of her abdomen and pelvis with contrast tomorrow. In addition, I am repeating her lipase tomorrow because it is elevated. Past medical history: Allergies: She has no known allergies. Her past medical history is positive for depression, hyperlipidemia, hypertension, anxiety, TIAs, colon polyps and pulmonary emboli. Prior operations include the appendectomy earlier this year as well as a hysterectomy in 2005 and back surgery in 2017. Family history: A brother has diabetes mellitus and hypertension and "blood problems". Her mother has hypertension and "blood problems". Social history: She has never smoked. She does not use alcohol. Review of systems: General: Positive for generalized weakness, malaise and an 8 pound weight loss over about 6 months. No recent history of fever or night sweats. Eyes: No history of abnormalities of the lids or conjunctivae. She has had blurred vision. ENT: Positive for a lump in the throat. Negative for dysphagia, hoarseness, mouth sores, odynophagia and sore tongue. Respiratory: Negative for cough, pleuritic chest pain or painful respirations. Cardiovascular: Positive for chest pain and irregular heartbeat but negative for coronary artery disease or congestive heart failure. GI: Positive for abdominal pain and bloating. See physical examination. Negative for palpable abdominal mass, nausea or vomiting although she says that she vomited last night. Neurologic: Negative for syncope or focal muscle weakness in spite of the history of TIA. No history of seizures, convulsions or paralysis. Reproductive: Negative for breast lumps but positive for folliculitis on her left breast. She is postmenopausal. Lymphatic: Positive for increasing bilateral cervical adenopathy but not for axillary adenopathy or inguinal adenopathy. Hematologic: She has a history of chronic anemia but no thrombocytopenia or neutropenia. Skin: No history of rashes other than the resolving folliculitis on her left breast. Physical examination: General: The patient really does not appear to be in any acute distress although she complains of abdominal pain. Eyes: Normal lids and conjunctivae. ENT: Her oral mucosa and pharynx are normal. Her hearing is normal. Her trachea is midline and she has no neck masses. Lungs: Breath sounds are normal without rubs, rales or rhonchi. There is symmetrical unlabored chest motion with respiration. Cardiovascular: Her heart rhythm is regular without murmur, gallop or rub. There is no jugular venous distention, clubbing or cyanosis. Abdomen: She has several scars on her abdomen including recent laparoscopic appendectomy scars. Bowel sounds are normal. I palpate no abdominal masses or organomegaly and no ascites. Musculoskeletal: There is no focal muscle atrophy or bone or joint deformity. Neurologic: Cranial nerves II through XII are intact. The no focal neurologic deficits. Nodes: The patient has bilateral cervical adenopathy both in the anterior and posterior chains as well as submandibular adenopathy. There is perhaps some slight supraclavicular adenopathy. I palpate one enlarged lymph node in the right axilla but no other adenopathy. Breasts: No masses. Psychiatric: The patient is anxious as usual and somewhat apprehensive. Impression: Significant drop in hemoglobin, probably due to GI blood loss Lab work today includes white cell count 4700 and she has been transfused. Hemoglobin 13.1. I find it hard to believe that 3 units of packed red cells would raise her hemoglobin from 5.4-13.1. I suspect that the CBC done yesterday was in part lab error. This patient has multifactorial abdominal pain, some which is purely gastrointestinal and not in my field of expertise but she has an elevated lipase on this admission and probably has pancreatitis. This patient has a CD20 positive non-Hodgkin's lymphoma but is not currently on active treatment Exam Home Medications Medication Instructions Recorded Confirmed Type Amlodipine Besylate 10 mg PO DAILY 06/29/16 06/10/17 History Ondansetron Odt Tab [Zofran Odt] 4 mg PO Q6H PRN 06/29/16 06/10/17 History Pantoprazole Tab [Protonix Tab] 40 mg PO BID 06/29/16 06/10/17 History Amitriptyline [Elavil] 10 mg PO DAILY 06/04/17 06/10/17 History Hydrocodone/Acetaminophen [[place] 1 each PO QID PRN 06/04/17 06/10/17 History 10-325 Tablet] Zolpidem Tartrate [Ambien Cr] 12.5 mg PO BEDTIME 06/04/17 06/10/17 History Dicyclomine Cap/Tab [Bentyl 20 mg PO QID PRN #20 tablet 06/07/17 06/10/17 Rx Cap/Tab] Ondansetron [Ondansetron Odt] 8 mg PO Q4H PRN #10 tab.rapdis 06/07/17 06/10/17 Rx Levofloxacin Tab [Levaquin Tab] 250 mg PO DAILY #7 tablet 06/10/17 Rx Allergies Allergy/AdvReac Type Severity Reaction Status Date / Time No Known Allergies Allergy Verified 06/10/17 05:24 Medical,Surgical,& Family Hx - Medical History Cardio: History of: Hypertension Psychological: History of: Anxiety Disorders Respiratory: History of: Pulmonary Embolism Gastrointestinal: History of: Diverticulitis/ Diverticulosis, GERD No history of: GI Problems Hematology: History of: Hematologic Cancer (non-Hodgkin's lymphoma) Other: History of: Cancer (CLL), Miscellaneous Medical Problems (chronic back pain) - Surgical History Abdominal Surgeries: Surgical HX of: Appendectomy, Cholecystectomy Reproductive Surgeries: Surgical HX of;: Hysterectomy Orthopedic Surgeries: Surgical HX of;: Orthopedic Surgery (carpal tunnel surgery ) - Social History Smoking Status: Never smoker Frequency of Alcohol Use: None Type of Drug Use: None Exam - Constitutional Vitals: Period Temp Pulse Resp BP Sys/Dunne Pulse Ox Last 24 Hr 97.3 F-99.8 F 69-94 16-20 138-184/84-112 94-98 Results - Labs CBC & BMP: 06/11/17 04:48 06/11/17 04:48
[2017-06-11] MEDS: PANTOPRAZOLE 40 MG TABLET PO SCH ×2 (09:12→19:59)
[2017-06-11] MEDS: ONDANSETRON 4 MG/2 ML VIAL IV PRN (09:12)
[2017-06-11] MEDS: DEXTROSE 5% NACL 0.45% 1,000 ML IV SCH (09:19)
--- NOTE | 2017-06-11 10:19 | Gastrointestinal Consult Note ---
Assessment and Plan (1) Chronic abdominal pain Status: Acute Current Visit: No (2) Anemia Status: Acute Current Visit: Yes (3) Other specified counseling Status: Acute Current Visit: Yes History of Present Illness History of present illness: Ms. Lyle is a 56 year old female Home Medications Medication Instructions Recorded Confirmed Type Amlodipine Besylate 10 mg PO DAILY 06/29/16 06/10/17 History Ondansetron Odt Tab [Zofran Odt] 4 mg PO Q6H PRN 06/29/16 06/10/17 History Pantoprazole Tab [Protonix Tab] 40 mg PO BID 06/29/16 06/10/17 History Amitriptyline [Elavil] 10 mg PO DAILY 06/04/17 06/10/17 History Hydrocodone/Acetaminophen [[place] 1 each PO QID PRN 06/04/17 06/10/17 History 10-325 Tablet] Zolpidem Tartrate [Ambien Cr] 12.5 mg PO BEDTIME 06/04/17 06/10/17 History Dicyclomine Cap/Tab [Bentyl 20 mg PO QID PRN #20 tablet 06/07/17 06/10/17 Rx Cap/Tab] Ondansetron [Ondansetron Odt] 8 mg PO Q4H PRN #10 tab.rapdis 06/07/17 06/10/17 Rx Levofloxacin Tab [Levaquin Tab] 250 mg PO DAILY #7 tablet 06/10/17 Rx Allergies Allergy/AdvReac Type Severity Reaction Status Date / Time No Known Allergies Allergy Verified 06/10/17 05:24 Medical,Surgical,& Family Hx - Medical History Cardio: History of: Hypertension Psychological: History of: Anxiety Disorders Respiratory: History of: Pulmonary Embolism Gastrointestinal: History of: Diverticulitis/ Diverticulosis, GERD No history of: GI Problems Hematology: History of: Hematologic Cancer (non-Hodgkin's lymphoma) Other: History of: Cancer (CLL), Miscellaneous Medical Problems (chronic back pain) - Surgical History Abdominal Surgeries: Surgical HX of: Appendectomy, Cholecystectomy Reproductive Surgeries: Surgical HX of;: Hysterectomy Orthopedic Surgeries: Surgical HX of;: Orthopedic Surgery (carpal tunnel surgery ) - Social History Smoking Status: Never smoker Frequency of Alcohol Use: None Type of Drug Use: None Exam - Constitutional Vitals: Period Temp Pulse Resp BP Sys/Dunne Pulse Ox Last 24 Hr 97.7 F-99.8 F 69-94 16-20 138-184/84-112 94-98 Results - Labs CBC & BMP: 06/11/17 04:48 06/11/17 04:48 Specialty Discharge - Follow Up or Referrals Note Addendum: PLEASE NOTE -- automatic citation of patient information is unavoidable in this electronic note. I have made a reasonable effort to review the information cited , but it is not a part of my evaluation, impression, or recommendation unless specifically discussed in the dictated text that follows. As well, voice recognition software was used in the creation of this clinical note. Reasonable effort was made to identify and correct gross errors. Despite proofreading, errors in rn perinatal may be present, including nonsense verbiage at times. If you encounter such an error, please contact me at [phone] for discussion and correction. -- Dorothy Chief complaint: abdominal pain History of present illness: This is a new patient, a 56-year-old female seen by consultation for evaluation of abdominal pain. The patient is admitted to the hematology/oncology service under the care of Dr. Bowens with a primary diagnosis of non-Hodgkin's lymphoma with anemia and abdominal pain. The patient was admitted yesterday with primary complaint of same. Evaluation at that time revealed significantly decreased hemoglobin, less than 6 g/dL, and the patient was transfused three units of packed red blood cells. She has otherwise been managed conservatively. Hemoglobin this morning as measured at 13.1 g/dL, a remarkable response to transfusion if correct. The patient is followed by gastroenterology at [facility] for chronic abdominal pain and has undergone both upper and. She last underwent endoscopic evaluation more than a year ago but doesn't remember any findings from that time. This morning she reports continued abdominal discomfort in the epigastrium. She is having bowel movements but says they are regular without blood, mucus, or pus. Discussion with Dr. Chavira reveals this pain has been going on as long as he has known her and he has not seen any progression or improvement during that time. The patient is tolerating food at present. Patient denies fever, chills, night sweats, rigors, headache, dizziness, neck pain, visual changes, redness of the eyes, dysphagia, odynophagia, difficulty chewing, chest pain, shortness of breath, hematemesis, diarrhea, hematochezia, melena, proctalgia, change in bowel pattern generally, dysuria, skin changes, temperature regulation issues, flushing, easy bleeding/bruising, mental status change, numbness/weakness in the extremities, yellowing of the eyes/skin, cutaneous eruptions, allergies to food or drug, family history of gastrointestinal cancer and colon polyps, and other complaints in general. Review of systems: 12 point review of systems was negative except as documented above. Outpatient medications: amlodipine, Elavil, Zofran, [place], Bentyl, Ambien, Protonix, Levaquin Inpatient medications: Tylenol, Mylanta, Xanax, Elavil, Norvasc, Cogentin, Thorazine, Bentyl, Benadryl, Robitussin, [place], Dilaudid, lactulose, levofloxacin, Imodium, milk of magnesia, Zofran, Protonix, Phenergen, Restoril, ultram, [place] Past Medical History: none [place] problem, depression, hyperlipidemia, hypertension, anxiety, transient ischemic attack, colon polyps, pulmonary embolus Social history: negative tobacco. Negative alcohol Family history: no gastrointestinal cancers Physical examination: Vital Signs: Current vital signs reviewed and documented above. General Appearance: well-appearing. Not acutely ill. Head: Normocephalic. Neck: Palpation of the neck revealed no abnormalities. Eyes: No scleral icterus. No scleral injection. No conjunctival pallor. Oral Cavity: Odor of breath was normal. No drooling was observed. Lips showed no abnormalities. Floor of the mouth showed no abnormalities. Pharynx: Oropharynx was normal. Lungs: Respiration rhythm and depth was normal. Cardiovascular: Heart rate and rhythm were normal. No murmurs were appreciated. Abdomen: abdomen was not distended. Abdominal palpation revealed minimal tenderness and no hepatosplenomegaly. Ascites was not discovered. Abdominal auscultation revealed positive bowel sounds. Musculoskeletal System: Musculoskeletal system was grossly normal. Neurological: level of consciousness was normal. Speech was normal. Skin: General appearance was normal. Color and pigmentation were normal. No skin lesions. Laboratory: white blood count 4.7, hemoglobin 13.1, hematocrit 35.9, platelets .51, ALT 22, AST 27, total bilirubin 1.1, alkaline phosphatase 83, albumin 3.1, total protein 6.0 lipase 749 Radiology: abdominal plane film, 06/10/17: nonspecific bowel gas pattern Impressions: #1. Abdominal pain -- the differential diagnosis is broad and includes functional abdominal pain, peptic ulcer, gastritis/esophagitis generally, pain associated with lymphadenopathy, musculoskeletal abdominal wall pain, and others. I recommend upper endoscopy and we will schedule that for tomorrow. If no finding, colonoscopy could be considered. In the interim, I recommend we request records from [facility] to determine what other studies have been done. We can follow up with further recommendations once this is complete. #2. Anemia -- the patient reports no overt bleeding. The remarkable response to transfusion also implies that there is not the acute gastrointestinal bleeding. Upper endoscopy will help to rule out peptic ulcer and other potential sources of rapid bleeding. Further evaluation will depend on her clinical progress. #2. Other specified counseling -- The patient was seen for greater than 30 minutes. The patient was counseled for greater than 50% of this time regarding differential diagnosis, likely diagnosis, diagnostic and therapeutic alternatives, risks/benefits/alternatives of medications and procedures, and plan of care generally. The patient expressed understanding and wishes to proceed. Recommendations: -- continue volume management -- monitor blood counts and transfuse as indicated -- upper endoscopy tomorrow -- consider colonoscopy depending on findings -- thank you for this consultation. Dr. Watson will assume G.I. care for this patient tomorrow.
[2017-06-11] MEDS: LEVOFLOXACIN INJ 750 MG in PREMIX 1 EACH IV SCH (13:26)
[2017-06-11] MEDS: DEXT 5% NACL 0.45% KCL 20 MEQ 20 MEQ/1,000 ML BAG IV SCH (13:27)
--- NOTE | 2017-06-11 14:39 | CT Report ---
Exam: CT abdomen and pelvis without intravenous contrast Exam date: 06/11/2017 Clinical History: 56 years,Female, hematochezia abdominal pain, generalized , lymphoma Technique: Axial computed tomography images of the abdomen and pelvis without intravenous contrast. All CT scans at this facility use one or more dose reduction techniques. Automated exposure control, MA/KV adjustment per patient size (including targeted exam Square dose is matched to indication) or iterative reconstruction technique Comparison: May 29, 2017 Findings: Lower thorax: No acute pathology within the lung bases. Abdomen: Liver: Stable left hepatic lobe cyst. Gallbladder and bile ducts: Prior cholecystectomy. Pancreas: Pancreas is normal. Spleen: Spleen is normal. Adrenals: No adrenal mass. Kidneys and ureters: Normal in size, echotexture and morphology. No hydronephrosis. No ureteral calculus. Stomach and bowel: A few scattered colonic diverticula without evidence of diverticulitis. Evaluation for bowel hemorrhage is limited secondary to use of oral contrast.. Small hiatal hernia is noted. Appendix: No primary or secondary signs to suggest appendicitis. Pelvis: Bladder: Unremarkable Reproductive: Prior hysterectomy. Abdomen and pelvis: Intraperitoneal space: No pneumoperitoneum. No free intraperitoneal fluid Bones/joints: L5-S1 laminectomy and fusion, uncomplicated.. Soft tissues: No mass Vasculature: No aortic aneurysm. Atheromatous calcifications noted along the aorta and branch vessels. Lymph nodes: No change in size, number, or appearance of the abdominal, retroperitoneal or pelvic lymph nodes since previous study. Impression: 1. No acute findings. 2. Other findings as discussed above PROCEDURE INTERPRETED AT [facility] DEPARTMENT OF RADIOLOGY Final Report Signed by: Facundo Pham
[2017-06-11] MEDS: ZALEPLON 5 MG CAPSULE PO SCH (20:00)
[2017-06-12] MEDS: DEXT 5% NACL 0.45% KCL 20 MEQ 20 MEQ/1,000 ML BAG IV SCH ×3 (01:02→22:47)
[2017-06-12] MEDS: HYDROmorphone 2 MG/1 ML VIAL IV PRN ×5 (02:32→22:44)
[2017-06-12] MEDS: ONDANSETRON 4 MG/2 ML VIAL IV PRN (06:46)
[2017-06-12 08:01] LABS: Albumin 2.9 G/DL (3.4-5.0); Bilirubin,Total 0.8 MG/DL (0.2-1.0); Calcium 6.6 MG/DL (8.5-10.1); Osmolality,Calculated 277.5 MOS/KG (273-304); Potassium 3.4 MMOL/L (3.5-5.1); Total Protein 5.7 G/DL (6.4-8.3)
[2017-06-12 08:08] LABS: Eosinophils # 0.1 10*3/uL (0.0-0.87); Eosinophils % 1.3 % (0.00-10.9); Hematocrit 34.4 VOL% (35.7-47.0); Hemoglobin 12.6 GM/DL (12.0-16.0); Immature Granulocytes Absolute 0.24 #; Lymphocytes # 0.4 10*3/uL (1.4-4.0); Lymphocytes % 10.6 % (21.3-54.2); Mean Corpuscular HGB Conc 36.6 GM/DL (32-36); Mean Corpuscular Hemoglobin 29 PG (27-34); Mean Corpuscular Volume 79.1 FL (87-102); Neutrophils # 3.2 10*3/uL (1.4-7.4); Neutrophils % 80.1 % (38.7-73.9); Platelet Count 144 T/CUMM (130-400); Red Blood Count 4.35 MC/CUMM (3.8-5.5); Red Cell Distribution Width 16.3 % (9.3-17.3)
[2017-06-12 08:40] LABS: Band Neutrophils 1 % (0-10); Eosinophils 6 % (0-10); Hypochromasia 1+; Lymphocytes 5 % (20-55); Microcytosis 1+; Segmented Neutrophils 86 % (50-85); Total Cells Counted 100
[2017-06-12 08:41] LABS: Tear Drop Cells Slight
[2017-06-12 08:42] LABS: Ovalocytes Slight; Platelet Estimate Adequate
--- NOTE | 2017-06-12 08:53 | Oncology Progress Note ---
Oncology Subjective PN Interval history: Ms. Lyle is about to undergo EGD. She has had repeated EGDs. She has an elevated lipase I am checking a lipase on her again tomorrow. She has had multiple causes for abdominal pain. I have been following her for lymphoma and I do not think it has anything to do with the majority of her abdominal pain. She was supposed to have a hemoglobin of 5.4 on June 10 and I transfused 3 units of packed red cells which raised her hemoglobin at 13.1 on June 11. Today the hemoglobin is 12.6. I think that the original hemoglobin report of 5.4 was in error but there is no way at this point to prove it. We will await the results of the EGD I will recheck lab work one more time tomorrow. See my orders. Exam - Constitutional Vitals: Period Temp Pulse Resp BP Sys/Dunne Pulse Ox Last 24 Hr 97.8 F-99 F 79-95 16-20 143-180/90-100 94-97 Results - Labs CBC & BMP: 06/12/17 07:00 06/12/17 07:00 Specialty Discharge - Follow Up or Referrals
--- NOTE | 2017-06-12 09:59 | Physician Query Form ---
CLICK EDIT DOCUMENT TO SELECT QUERY ANSWER --> OK --> SIGN Macrina Jean Baptiste RN, CCDS Certified Clinical Drop Clipper W) [phone] (f) [phone] [email or web address] PROVIDERS: Make your selection(s) from the choices in EACH section by typing an "x" and enter comments in the comment section. Please use your independent medical judgment in providing your response. This request does not imply that any particular answer is desired or expected. CLINICAL INDICATORS: (Providers should not edit this section) The medical record indicates that the patient was admitted with abd pain, creatinine of 2.20 on the that has dropped to 1.60 on the , GFR of 26 on the that has increased to 36 on the and the patient was treated with IVF's/ blood. Clarify which of the following most accurately represents the patient's renal status: ( ) Acute kidney injury (non-traumatic) ( ) Acute renal failure ( ) Acute renal failure with underlying Chronic Kidney Disease (CKD) - please provide stage below ( ) Acute renal failure with pathological renal lesion ( ) Acute renal failure with necrosis ( ) tubular ( ) medullary ( ) cortical ( ) CKD - please provide stage below ( ) End Stage Renal Disease ( ) Acute interstitial nephritis ( ) Hepatorenal syndrome ( ) Other, please specify: (x ) Clinically unable to determine Chronic Kidney Disease Stages Source: National Kidney Disease Foundation ( ) Stage I (eGFR > or = 90) ( ) Stage II (eGFR 60 - 89) ( ) Stage III (eGFR 30 - 59) ( ) Stage IV (eGFR 15 - 29) ( ) Stage V (eGFR < 15 or dialysis) COMMENTS: PLEASE ALSO DOCUMENT RESPONSE IN PROGRESS NOTES AND/OR DISCHARGE SUMMARY Use of terms such as suspected, likely, or probable (associated with a specific diagnosis that is being evaluated, monitored, or treated as if it exists) are acceptable and can be restated in the discharge summary if not ruled out. MTDD
[2017-06-12] MEDS ORDERED: METOPROLOL TARTRATE 5 MG/5 ML VIAL IV ONE (10:51)
[2017-06-12] MEDS ORDERED: LIDOCAINE 2% 5 ML VIAL ONE (10:51)
[2017-06-12] MEDS ORDERED: PROPOFOL 200 MG/20 ML VIAL IV ONE (10:51)
--- NOTE | 2017-06-12 10:54 | History and Physical Update ---
History and Physical Update - Physical Exam Mental Status: alert and oriented Heart: regular rate and rhythm Lung: clear to auscultation Abdomen: within normal limits Vitals: within normal limits
--- NOTE | 2017-06-12 11:05 | Anesthesia Post-Op ---
Anesthesia Post OP - Post Ansesthetic Evaluation Patient seen in post op: Yes Resp: within normal limits CV: within normal limits Mental: within normal limits Temp: within normal limits Tthr-Ra-Puwofoyjz: within normal limits Nausea and Vomiting: within normal limits Pain: within normal limits
--- NOTE | 2017-06-12 11:12 | Operative Note ---
Date of procedure: 06/12/17 Pre-op diagnosis: Abdominal pain and anemia Procedure: EGD with biopsy 56-year-old female with history of lymphoma persistent anemia and abdominal pain of long-standing duration has previously been evaluated at [place] now for EGD to further evaluate. Informed consent obtained patient She was sedated with general anesthesia per anesthesia protocol. Patient was placed in left lateral decubitus position. The Olympus flexible video upper endoscope subdural cavity under direct vision esophagus intubated. Findings: Esophagus-normal proximal mid esophageal mucosa distal esophagus with small hiatal hernia and distal esophagitis. No stricture or Castañeda's was seen. Stomach-normal insufflation there is antral erosive gastritis biopsies were taken no ulcer seen to direct retroflexed views of the body, fundus, cardia and antrum the stomach. Pylorus-normal Duodenum-normal for the bulb and duodenum to the third portion. The procedure terminated placed our procedure well she is discharge recovery good condition. Postop diagnosis: 1. Gastroesophageal reflux disease with esophagitis-continue PPI treatment and antireflux precautions 2. Erosive vdugglgch-lpnbuq-cy biopsy-positive for H. pylori we will treat. Continue PPI treatment. Avoid nonsteroidals. 3. Request [facility] record for most recent colonoscopy patient reports last year. Anesthesia: other (General) Surgeon / Physician: Huy Watson Estimated blood loss: none Specimens: other (Gastritis) Condition: stable Disposition: post procedure unit Results - Labs CBC & BMP: 06/12/17 07:00 06/12/17 07:00 Discharge Plan - Discharge Medications New Levofloxacin Tab [Levaquin Tab] 250 mg PO DAILY #7 tablet No Action Pantoprazole Tab [Protonix Tab] 40 mg PO BID Ondansetron Odt Tab [Zofran Odt] 4 mg PO Q6H PRN PRN Reason: Nausea Amlodipine Besylate 10 mg PO DAILY Hydrocodone/Acetaminophen [[place] 10-325 Tablet] 1 each PO QID PRN PRN Reason: Pain Ondansetron [Ondansetron Odt] 8 mg PO Q4H PRN #10 tab.rapdis PRN Reason: Nausea Amitriptyline [Elavil] 10 mg PO DAILY Zolpidem Tartrate [Ambien Cr] 12.5 mg PO BEDTIME Dicyclomine Cap/Tab [Bentyl Cap/Tab] 20 mg PO QID PRN #20 tablet PRN Reason: Abdominal Pain - Follow Up or Referral - Forms/Instructions Instructions: Levofloxacin (By mouth), Urinary Tract Infection in Women (ED), Anemia (ED)
[2017-06-12] MEDS: amLODIPine 10 MG TABLET PO SCH (12:31)
[2017-06-12] MEDS: AMITRIPTYLINE 10 MG TABLET PO SCH (12:31)
[2017-06-12] MEDS: PANTOPRAZOLE 40 MG TABLET PO SCH ×2 (12:32→20:50)
[2017-06-12] MEDS: ZALEPLON 5 MG CAPSULE PO SCH (20:50)
[2017-06-13] MEDS: HYDROmorphone 2 MG/1 ML VIAL IV PRN ×4 (04:00→23:05)
[2017-06-13 04:42] LABS: Eosinophils # 0.1 10*3/uL (0.0-0.87); Eosinophils % 1.4 % (0.00-10.9); Hematocrit 35.4 VOL% (35.7-47.0); Hemoglobin 12.5 GM/DL (12.0-16.0); Immature Granulocytes % 6.7 %; Immature Granulocytes Absolute 0.28 #; Lymphocytes # 0.5 10*3/uL (1.4-4.0); Lymphocytes % 10.7 % (21.3-54.2); Mean Corpuscular HGB Conc 35.3 GM/DL (32-36); Mean Corpuscular Hemoglobin 28 PG (27-34); Mean Corpuscular Volume 80.5 FL (87-102); Mean Platelet Volume 10.1 FL (9.6-12.0); Neutrophils # 3.3 10*3/uL (1.4-7.4); Neutrophils % 79.2 % (38.7-73.9); Platelet Count 140 T/CUMM (130-400); Red Cell Distribution Width 16.6 % (9.3-17.3); White Blood Count 4.2 T/CUMM (4-12)
[2017-06-13 04:55] LABS: Bilirubin,Total 0.9 MG/DL (0.2-1.0); Calcium 6.3 MG/DL (8.5-10.1); Osmolality,Calculated 272.7 MOS/KG (273-304); Potassium 3.5 MMOL/L (3.5-5.1); Total Protein 5.9 G/DL (6.4-8.3)
[2017-06-13 05:26] LABS: Anisocytosis Slight; Band Neutrophils 1 % (0-10); Eosinophils 3 % (0-10); Lymphocytes 12 % (20-55); Macrocytosis Slight; Platelet Estimate Decreased; Segmented Neutrophils 82 % (50-85); Total Cells Counted 100
--- NOTE | 2017-06-13 07:29 | Oncology Progress Note ---
Oncology Subjective PN Interval history: I can only speculate that the initial hemoglobin of 5.4 was a lab error since the patient has received 3 units of packed red cells and was transfused all the way to a hemoglobin of 13.1. This is not likely to happen. She has undergone upper endoscopy and has been found to have esophagitis and erosive gastritis that his H pylori positive. The patient has non-Hodgkin's lymphoma but has not been on treatment for some time. The main reason that I admitted her was about because of the hemoglobin of 5.4. Again I think this was lab error. She has been repeatedly evaluated at [place]. I do not plan to become her primary care physician or manage her GI problems because she is in constant abdominal pain for more than 1 because and in my opinion is a very low pain threshold and requires more parenteral and oral narcotics and I am willing to supply under the circumstances. The lymphoma is not the cause of her pain. We actually asked her about her primary care doctor and she says she does not remember one. In addition we have checked on her prescriptions for pain medication and she has been multiple caregivers, primarily nurse practitioners, who prescribed her medications for pain. At this point I am not willing to prescribe pain medications anymore so we are going to consult a pain specialist. I will keep her another day until we get final plans completed concerning management of her gastritis and her GI problems and then I plan to discharge her. I expect she will need treatment for her lymphoma in the future but I do not plan to proceed with it presently. The CT of the patient's abdomen and pelvis done June 10 and compared to prior CT of May 29, 2017 does not demonstrate any acute pathology or anything to suggest recurrence of her lymphoma. Her lipase level was 749 on June 10. It is down to 193 and within normal range as of today. Exam - Constitutional Vitals: Period Temp Pulse Resp BP Sys/Dunne Pulse Ox Last 24 Hr 97.9 F-99.0 F 76-95 16- 129-186/80-106 96-100 Results - Labs CBC & BMP: 06/13/17 04:00 06/13/17 04:00 Specialty Discharge - Follow Up or Referrals
[2017-06-13] MEDS: DEXT 5% NACL 0.45% KCL 20 MEQ 20 MEQ/1,000 ML BAG IV SCH ×3 (08:41→20:20)
[2017-06-13] MEDS: AMITRIPTYLINE 10 MG TABLET PO SCH (08:41)
[2017-06-13] MEDS: amLODIPine 10 MG TABLET PO SCH (08:42)
[2017-06-13] MEDS: PANTOPRAZOLE 40 MG TABLET PO SCH ×2 (08:42→20:16)
[2017-06-13] MEDS: ONDANSETRON 4 MG/2 ML VIAL IV PRN (08:49)
--- NOTE | 2017-06-13 09:44 | Gastrointestinal Progress Note ---
<ObduliadanielViridiana Jovi - Last Filed: 06/13/17 09:42> Assessment and Plan (1) Abdominal pain Status: Acute Assessment and plan: 06/13-EGD results noted as below. Colonoscopy results from earlier this year noted as below as well. Poor appetite with continued nausea. Continue to monitor this time. H&H is stable. Plan an addendum to followed by Dr. Watson. Current Visit: Yes Gastroenterology - PN: Subj Interval history: CC: Abdominal pain, anemia Patient is seen, awake and alert sitting up in bed. She states that she is feeling about the same at this time. She has some continued nausea with poor appetite. EGD findings noted with GERD, esophagitis and erosive gastritis. Colonoscopy records are [facility] from [facility] in which she had a colonoscopy in January of this year with findings of diverticulosis, redundant colon, and suboptimal prep was mentioned. H&H is stable at 12/35. Abdomen is soft, nontender. ROS: Denies shortness of breath or chest pain Exam (Progress Note) - Constitutional Vitals: Period Temp Pulse Resp BP Sys/Dunne Pulse Ox Last 24 Hr 97.9 F-99.0 F 76-95 16-26 129-186/80-106 96-100 General appearance: normal weight, no acute distress - Head Head exam: Present: normal inspection, normocephalic - Eye Eye exam: Present: other (Lids and conjunctivae are unremarkable). Absent: scleral icterus - ENT ENT exam: Present: normal exam, normal oropharynx - Neck Neck exam: Present: normal inspection - Respiratory Respiratory exam: Present: clear to auscultation bilaterally. Absent: rales, rhonchi, wheezes - Cardiovascular Cardiovascular exam: Present: regular rate and rhythm. Absent: diastolic murmur , JVD, systolic murmur - GI/Abdominal GI/Abdominal exam: Present: normal bowel sounds, soft. Absent: ascites, distended, mass, organomegaly, tenderness - Extremities Exam Extremities exam: Present: normal inspection, full ROM - Back Exam Back exam: Present: normal inspection - Neurological Exam Neurological exam: Present: alert, oriented X3 - Psychiatric Psychiatric exam: Present: normal affect, normal mood - Skin Skin exam: Present: normal color, warm, dry Results - Labs CBC & BMP: 06/13/17 04:00 06/13/17 04:00 Lab Results: I have reviewed the past 24 hour labs Specialty Discharge - Follow Up or Referrals <Huy Watson - Last Filed: 06/13/17 20:43> Exam (Progress Note) - Constitutional Vitals: Period Temp Pulse Resp BP Sys/Dunne Pulse Ox Last 24 Hr 97.9 F-99.2 F 91-95 16-20 135-176/86-104 97-99 Results - Labs CBC & BMP: 06/13/17 04:00 06/13/17 04:00
[2017-06-13] MEDS: LEVOFLOXACIN INJ 750 MG in PREMIX 1 EACH IV SCH (09:54)
--- NOTE | 2017-06-13 12:24 | Pathology Report from [facility] ---
[facility] ACCESSION # : [id number] PATIENT NAME : Mali Lyle ORDERING DR : LISSY RODRIGUEZ MD CLINICAL HX: Abdominal pain - IBS POST-OP DX: Gastritis SPECIMEN INFO: Gastric biopsy GROSS DESCRIPTION: The specimen is received in formalin labeled with the patients name and consists of two walker mucosal tissue fragments together measuring 0.7 x 0.3 cm. Submitted in one cassette. DIAGNOSIS FOR MALI LYLE: GASTRIC, BIOPSY: Mild chronic gastritis. No H. pylori seen on H&E or special stain with an appropriate control. COLLECTED DATE: 06/12/2017 [facility] REPORT DATE: 06/13/2017 ELECTRONICALLY SIGNED BY: Jihan Bonilla M.D. 06/13/2017 - 10:59:03 [facility] CENTER[facility]ovi
--- NOTE | 2017-06-13 12:45 | Pain Management Consult Note ---
Assessment and Plan (1) Chronic abdominal pain Problem details: Chronic right upper quadrant pain Status: Acute Assessment and plan: 06/13/2017. The patient reports right upper quadrant pain. Initially she stated the pain has been there "about a month". Upon further questioning she extend this out to 2 years. Trying to obtain a history from her was very difficult and frustrating in the vagueness of her answers. It is not clear what her baseline is. She was not able to answer any my questions directly, for example, when asked has she ever been told what caused her right upper quadrant pain she stated "I went to [place]". She did eventually admit that she is a patient at the [facility]. I see no indications for continued IV opioids and will start to wean these. After discharge she needs to follow- up with her pain doctor at [facility]. y Current Visit: No History of Present Illness Chief complaint: Right upper quadrant pain History of present illness: Ms. Lyle is a 56 year old female who complains of pain in the right upper quadrant of her abdomen. She describes it as constant pain a "hurting" pain and at times stabbing. She is unable to tell me anything that makes it worse but states that she is not active at home because it makes the pain worse. Taking the history from her with extremely difficult because of the vagueness of her answers and inconsistencies of her answers. She stated to me that she is only been hurting for a month, however on further questioning she eventually admitted that she has been hurting for over 2 years. She was having trouble answering any of my questions directly and not knowing her is not clear whether this represents purposeful vagueness or just a poor historian. Home Medications Medication Instructions Recorded Confirmed Type Amlodipine Besylate 10 mg PO DAILY 06/29/16 06/10/17 History Ondansetron Odt Tab [Zofran Odt] 4 mg PO Q6H PRN 06/29/16 06/10/17 History Pantoprazole Tab [Protonix Tab] 40 mg PO BID 06/29/16 06/10/17 History Amitriptyline [Elavil] 10 mg PO DAILY 06/04/17 06/10/17 History Hydrocodone/Acetaminophen [[place] 1 each PO QID PRN 06/04/17 06/10/17 History 10-325 Tablet] Zolpidem Tartrate [Ambien Cr] 12.5 mg PO BEDTIME 06/04/17 06/10/17 History Dicyclomine Cap/Tab [Bentyl 20 mg PO QID PRN #20 tablet 06/07/17 06/10/17 Rx Cap/Tab] Ondansetron [Ondansetron Odt] 8 mg PO Q4H PRN #10 tab.rapdis 06/07/17 06/10/17 Rx Levofloxacin Tab [Levaquin Tab] 250 mg PO DAILY #7 tablet 06/10/17 Rx Allergies Allergy/AdvReac Type Severity Reaction Status Date / Time No Known Allergies Allergy Verified 06/10/17 05:24 Medical,Surgical,& Family Hx - Medical History Cardio: History of: Hypertension Psychological: History of: Anxiety Disorders Neurology: No history of: Seizures Respiratory: History of: Pulmonary Embolism Gastrointestinal: History of: Diverticulitis/ Diverticulosis, GERD No history of: GI Problems Hematology: History of: Hematologic Cancer (non-Hodgkin's lymphoma) Other: History of: Cancer (CLL), Miscellaneous Medical Problems (chronic back pain) - Surgical History Abdominal Surgeries: Surgical HX of: Appendectomy, Cholecystectomy Reproductive Surgeries: Surgical HX of;: Hysterectomy Orthopedic Surgeries: Surgical HX of;: Orthopedic Surgery (carpal tunnel surgery ) - Social History Smoking Status: Never smoker Frequency of Alcohol Use: None Type of Drug Use: None - Constitutional Constitutional: Present: fatigue, malaise - Gastrointestinal Gastrointestinal: Present: abdominal pain (Right upper quadrant) Exam - Constitutional Vitals: Period Temp Pulse Resp BP Sys/Dunne Pulse Ox Last 24 Hr 97.9 F-99.2 F 91-95 16-20 129-176/80-104 96-99 General appearance: normal weight, no acute distress - Head Head exam: Present: normocephalic - Respiratory Respiratory exam: Present: clear to auscultation bilaterally - Cardiovascular Cardiovascular exam: Present: RRR - GI/Abdominal GI/Abdominal exam: Present: tenderness (Right upper quadrant with negative rebound), soft - Neurological Exam Neurological exam: Present: alert, oriented X3, CN II-XII intact - Skin Skin exam: Present: normal color Results - Labs CBC & BMP: 06/13/17 04:00 06/13/17 04:00 Specialty Discharge - Follow Up or Referrals
[2017-06-13] MEDS: SUCRALFATE 1 GM/10 ML UDCUP PO SCH ×2 (16:45→20:15)
[2017-06-13] MEDS: ZALEPLON 5 MG CAPSULE PO SCH (20:15)
[2017-06-14 04:56] LABS: White Blood Count 4.7 T/CUMM (4-12)
[2017-06-14 04:57] LABS: Basophils % 0.6 % (0.0-0.8); Eosinophils # 0.1 10*3/uL (0.0-0.87); Eosinophils % 1.3 % (0.00-10.9); Hematocrit 34.1 VOL% (35.7-47.0); Hemoglobin 12.3 GM/DL (12.0-16.0); Immature Granulocytes % 1.3 %; Immature Granulocytes Absolute 0.06 #; Lymphocytes # 0.6 10*3/uL (1.4-4.0); Lymphocytes % 12.3 % (21.3-54.2); Mean Corpuscular HGB Conc 36.1 GM/DL (32-36); Mean Corpuscular Hemoglobin 29 PG (27-34); Mean Corpuscular Volume 80.2 FL (87-102); Mean Platelet Volume 9.9 FL (9.6-12.0); Monocytes % 0.8 % (1.7-12.7); Neutrophils % 83.7 % (38.7-73.9); Platelet Count 139 T/CUMM (130-400); Red Blood Count 4.25 MC/CUMM (3.8-5.5); Red Cell Distribution Width 17.1 % (9.3-17.3)
[2017-06-14] MEDS: HYDROmorphone 2 MG/1 ML VIAL IV PRN (05:13)
[2017-06-14] MEDS: DEXT 5% NACL 0.45% KCL 20 MEQ 20 MEQ/1,000 ML BAG IV SCH ×2 (05:23→05:25)
[2017-06-14 05:32] LABS: Bilirubin,Total 0.5 MG/DL (0.2-1.0); Calcium 6.4 MG/DL (8.5-10.1); Osmolality,Calculated 273.5 MOS/KG (273-304); Potassium 4.1 MMOL/L (3.5-5.1); Total Protein 5.8 G/DL (6.4-8.3)
[2017-06-14 05:55] LABS: Eosinophils 1 % (0-10); Lymphocytes 8 % (20-55); Segmented Neutrophils 90 % (50-85); Total Cells Counted 100
[2017-06-14 05:56] LABS: Hypochromasia 1+; Microcytosis 1+; Platelet Estimate Adequate; Tear Drop Cells Slight
--- NOTE | 2017-06-14 07:30 | Oncology Progress Note ---
Oncology Subjective PN Interval history: This patient was admitted to me because she was apparently anemic and had a history of lymphoma. She is not on treatment for it. Her primary problems or gastrointestinal. She should not be readmitted to me if she presents with abdominal pain. It is my opinion that she is drug seeking and has a low pain threshold. I do not deny that she has pain but in my opinion she takes far too many narcotics and I have consulted pain management to manage her appropriately. The pain specialty market consultant actually discontinued her parenteral narcotics during this hospital stay and recommended she return to [place]. Do not readmit her to me unless she is on active treatment for lymphoma or has a complication of it. Diagnoses: Anemia requiring blood transfusion but possibly lab error Non-Hodgkin's lymphoma currently receiving chemotherapy, small lymphocytic CD20 positive Acute gastritis with Helicobacter pylori Pancreatitis Multifactorial abdominal pain This patient has a low pain threshold and was evaluated by a pain specialist during this hospitalization. Her parenteral narcotics were discontinued. Acute renal failure, resolved This patient did in fact received chemotherapy earlier this month, including Rituxan 800 mg IV on June 05 followed by bendamustine 160 mg daily 2 days intravenously in my office. The bendamustine was in fact given a few days after June 05. This portion of this dictation is from previous documentation on the patient's history and physical. This is a history and physical on Ms. Lyle who I decided to admit because of multiple problems including the fact that she has non-Hodgkin's lymphoma and she has a history of GI bleeding but she is followed at [place] her GI problems. She has chronic GI pains of various types. However, her hemoglobin yesterday was 5.4 so we transfused 3 units of packed red cells. Her white cell count is normal at 6600 and her platelet count is 220,000. She has an elevated lipase of 749. In addition, her serum creatinine today is 2.2. This is the reason we are dictating history and physical and admitting her is regular patient. This patient has been evaluated by multiple gastroenterologists and surgeons for abdominal pain. She actually underwent appendectomy earlier this year for her abdominal pain. She has had multiple endoscopies and additional evaluation. On this admission she underwent gastroscopy that confirmed gastritis with Helicobacter pylori positivity. She is being treated for this. In addition, she had an elevation of her BUN and creatinine on admission. This problem has resolved. I remain of the opinion that the reported hemoglobin of 5.4 on admission was lab error because it is not likely that 3 units of packed red cells what caused her hemoglobin to rise to normal. I do anticipate treating her lymphoma again at some point, probably with bendamustine. However, she had a CT of her abdomen and pelvis done during this hospital stay and it does not demonstrate any changes to suggest lymphoma presently. She has a complex set of issues, probably including a low pain threshold but also she has not been completely straightforward about her pain management. I had forgotten that she had already seen pain specialist at [facility] and she is instructed to return to see them for follow-up. This is a portion of my dictation from her last admission of less than a month ago: Ms. 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 She has been on various treatments with the most recent one being Rituxan and bendamustine. She last received Rituxan 650 mg IV in June 2015 and bendamustine 160 mg IV daily 2 days at that same time. She has been to [facility] where she saw Dr. Patterson, who recommended IBRUTINIB 420 mg daily as the next treatment. However, she had an excellent and prolonged response to bendamustine and she really does not have a great deal of lymphadenopathy even at this time. She does have progressive cervical adenopathy and also her abdominal CT demonstrates abdominal and pelvic adenopathy but it is not bulky disease. She has had no splenomegaly. In addition she has had very little axillary adenopathy. This patient has had a significant drop in her hemoglobin and I am concerned about intra-abdominal pathology. I do not intend to take over her management by her flexographic press plate setter and surgeon at [place] but I am going to go ahead and order a CT of her abdomen and pelvis with contrast tomorrow. In addition, I am repeating her lipase tomorrow because it is elevated. In addition, the patient did not tell the medical staff here that she was seeing a pain specialist. Dr. Angelo saw her and has signed off, and I certainly agree with this. I also appreciate his help. Blood work today includes a white cell count of 4700 with a hemoglobin of 12.3 and a platelet count of 139,000. I remain of the opinion that the admission hemoglobin that was reported to be 5.4 with laboratory error. The serum creatinine is returning to normal. There is 1.2 today. Yesterday she had an amylase of 84 with a lipase of 193. She has a follow-up visit to see me on June 26 and I will make a decision about further chemotherapy at that time. Exam - Constitutional Vitals: Period Temp Pulse Resp BP Sys/Dunne Pulse Ox Last 24 Hr 98.0 F-99.2 F 88-119 18-20 123-176/88-104 96-98 Results - Labs CBC & BMP: 06/14/17 04:00 06/14/17 04:00 Specialty Discharge - Follow Up or Referrals Follow up with: Juan Pablo Bowens MD [Physician] -
[2017-06-14] MEDS: amLODIPine 10 MG TABLET PO SCH (08:53)
[2017-06-14] MEDS: AMITRIPTYLINE 10 MG TABLET PO SCH (08:55)
[2017-06-14] MEDS: PANTOPRAZOLE 40 MG TABLET PO SCH (08:55)
[2017-06-14] MEDS: DICYCLOMINE 20 MG TABLET PO PRN (08:58)
[2017-06-14] MEDS: SUCRALFATE 1 GM/10 ML UDCUP PO SCH (08:58)
--- NOTE | 2017-06-14 09:00 | Discharge Summary ---
Hospital Course - Hospital Course Hospital Course: This patient was admitted to me because she was apparently anemic and had a history of lymphoma. She is not on treatment for it. Her primary problems or gastrointestinal. She should not be readmitted to me if she presents with abdominal pain. It is my opinion that she is drug seeking and has a low pain threshold. I do not deny that she has pain but in my opinion she takes far too many narcotics and I have consulted pain management to manage her appropriately. The pain specialty home service consultant actually discontinued her parenteral narcotics during this hospital stay and recommended she return to [facility]. Do not readmit her to me unless she is on active treatment for lymphoma or has a complication of it. Diagnoses: Anemia requiring blood transfusion but possibly lab error Non-Hodgkin's lymphoma currently receiving chemotherapy, small lymphocytic CD20 positive Acute gastritis without Helicobacter pylori identified Pancreatitis Multifactorial abdominal pain This patient has a low pain threshold and was evaluated by a pain specialist during this hospitalization. Her parenteral narcotics were discontinued. Acute renal failure, resolved This patient did in fact received chemotherapy earlier this month, including Rituxan 800 mg IV on June 05 followed by bendamustine 160 mg daily 2 days intravenously in my office. The bendamustine was in fact given a few days after June 05. This portion of this dictation is from previous documentation on the patient's history and physical. This is a history and physical on Ms. Lyle who I decided to admit because of multiple problems including the fact that she has non-Hodgkin's lymphoma and she has a history of GI bleeding but she is followed at [facility] her GI problems. She has chronic GI pains of various types. However, her hemoglobin yesterday was 5.4 so we transfused 3 units of packed red cells. Her white cell count is normal at 6600 and her platelet count is 220,000. She has an elevated lipase of 749. In addition, her serum creatinine today is 2.2. This is the reason we are dictating history and physical and admitting her is regular patient. This patient has been evaluated by multiple gastroenterologists and surgeons for abdominal pain. She actually underwent appendectomy earlier this year for her abdominal pain. She has had multiple endoscopies and additional evaluation. On this admission she underwent gastroscopy that confirmed gastritis without Helicobacter pylori being identified. She is being treated for this using Carafate. In addition, she had an elevation of her BUN and creatinine on admission. This problem has resolved. I remain of the opinion that the reported hemoglobin of 5.4 on admission was lab error because it is not likely that 3 units of packed red cells what caused her hemoglobin to rise to normal. I do anticipate treating her lymphoma again at some point, probably with bendamustine. However, she had a CT of her abdomen and pelvis done during this hospital stay and it does not demonstrate any changes to suggest lymphoma presently. She has a complex set of issues, probably including a low pain threshold but also she has not been completely straightforward about her pain management. I had forgotten that she had already seen pain specialist at [facility] and she is instructed to return to see them for follow-up. This is a portion of my dictation from her last admission of less than a month ago: Ms. 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 She has been on various treatments with the most recent one being Rituxan and bendamustine. She last received Rituxan 650 mg IV in June 2015 and bendamustine 160 mg IV daily 2 days at that same time. She has been to [facility] where she saw Dr. Patterson, who recommended IBRUTINIB 420 mg daily as the next treatment. However, she had an excellent and prolonged response to bendamustine and she really does not have a great deal of lymphadenopathy even at this time. She does have progressive cervical adenopathy and also her abdominal CT demonstrates abdominal and pelvic adenopathy but it is not bulky disease. She has had no splenomegaly. In addition she has had very little axillary adenopathy. This patient has had a significant drop in her hemoglobin and I am concerned about intra-abdominal pathology. I do not intend to take over her management by her rubble placer and surgeon at [facility] but I am going to go ahead and order a CT of her abdomen and pelvis with contrast tomorrow. In addition, I am repeating her lipase tomorrow because it is elevated. In addition, the patient did not tell the medical staff here that she was seeing a pain specialist. Dr. Angelo saw her and has signed off, and I certainly agree with this. I also appreciate his help. Blood work today includes a white cell count of 4700 with a hemoglobin of 12.3 and a platelet count of 139,000. I remain of the opinion that the admission hemoglobin that was reported to be 5.4 with laboratory error. The serum creatinine is returning to normal. There is 1.2 today. Yesterday she had an amylase of 84 with a lipase of 193. She has a follow-up visit to see me on June 26 and I will make a decision about further chemotherapy at that time. - Time spent with patient Time with patient DS: Greater than 30 minutes Specialty Discharge - Follow Up or Referrals Follow up with: Juan Pablo Bowens MD [Physician] - Discharge Plan - Discharge Data Disposition: Disch To Home/Self Care Condition at Discharge: Guarded Discharge Diet: advance to your usual diet Activity: resume usual activities as tolerated Hygiene: no restrictions Weight Bearing at Discharge: weight bear as tolerated Driving: other Contact your physician if you experience:: fever over 101, Difficulty voiding, Redness or swelling, Nausea/Vomiting, Shortness of breath, Bleeding, pain uncontrolled by pain medications - Discharge Medications New Sucralfate Liquid [Carafate Liquid] 1 gm PO ACHS #120 udcup Continue Pantoprazole Tab [Protonix Tab] 40 mg PO BID Ondansetron Odt Tab [Zofran Odt] 4 mg PO Q6H PRN PRN Reason: Nausea Amlodipine Besylate 10 mg PO DAILY Hydrocodone/Acetaminophen [Dickinson 10-325 Tablet] 1 each PO QID PRN PRN Reason: Pain Ondansetron [Ondansetron Odt] 8 mg PO Q4H PRN #10 tab.rapdis PRN Reason: Nausea Amitriptyline [Elavil] 10 mg PO DAILY Zolpidem Tartrate [Ambien Cr] 12.5 mg PO BEDTIME Dicyclomine Cap/Tab [Bentyl Cap/Tab] 20 mg PO QID PRN #20 tablet PRN Reason: Abdominal Pain - Follow Up or Referral Follow Up: Juan Pablo Bowens MD [Physician] - - Forms/Instructions Instructions: Levofloxacin (By mouth), Urinary Tract Infection in Women (ED), Anemia (ED) Additional Discharge Instructions: Keep the already scheduled appointment on June 26. It is very important that she return to see her pain doctor and her rubble placer at [facility] for follow-up of your GI problems. Exam - Constitutional Vitals: Period Temp Pulse Resp BP Sys/Dunne Pulse Ox Last 24 Hr 98.0 F-98.9 F 88-119 18-20 123-166/88-97 96-97 Discharge Results Procedures and tests throughout hospitalization: Pending Orders 06/15/17 04:00 Comp Blood Count Auto Diff IN AM Comprehensive Metabolic Panel IN AM 06/16/17 04:00 Comp Blood Count Auto Diff IN AM Comprehensive Metabolic Panel IN AM 06/17/17 04:00 Comp Blood Count Auto Diff IN AM Comprehensive Metabolic Panel IN AM 06/18/17 04:00 Comp Blood Count Auto Diff IN AM Comprehensive Metabolic Panel IN AM Labs on day of discharge: Labs from last 24 hours 06/14/17 06/14/17 04:00 04:00 WBC 4.7 RBC 4.25 Hgb 12.3 Hct 34.1 L MCV 80.2 L MCH 29 MCHC 36.1 H RDW 17.1 Plt Count 139 MPV 9.9 Neut % (Auto) 83.7 H Lymph % (Auto) 12.3 L Davis % (Auto) 0.8 L Eos % (Auto) 1.3 Baso % (Auto) 0.6 Neut # (Auto) 4.0 Lymph # (Auto) 0.6 L Davis # (Auto) 0.0 L Eos # (Auto) 0.1 Baso # (Auto) 0.0 Total Counted 100 Immature Gran % 1.3 Nucleated RBC % 0.0 Immature Gran # 0.06 Segmented Neutrophils 90 H Lymphocytes 8 L Monocytes 1 L Eosinophils 1 Nucleated RBCs # 0.00 Platelet Estimate Adequate Immature Plt Fraction 0.0 Hypochromasia 1+ Microcytosis 1+ Tear Drop Cells Slight Sodium 139 Potassium 4.1 Chloride 105 Carbon Dioxide 28 Anion Gap 10.1 BUN 5 L Creatinine 1.20 H GFR Calculation 52 BUN/Creatinine Ratio 4.00 L Glucose 104 Calculated Osmolality 273.5 Calcium 6.4 L Total Bilirubin 0.50 AST 18 ALT 33 Alkaline Phosphatase 90 Total Protein 5.8 L Albumin 3.0 L Globulin 2.8 Albumin/Globulin Ratio 1.0 L DS: Provider Date of admission: 06/10/17 15:34 Primary care physician: Clint Leach Attending physician on admission: Juan Pablo Bowens MD Consults: 06/10/17 15:36 Consult to Physician [CONS] Routine Comment: lymphoma with abdominal pain. Consulting Provider: Ervin De La Cruz V When should Consulting Provider be notified: In am Person Notified: Dr. De La Cruz Date Notified: 06/10/17 Time Notified: 16:00 06/10/17 18:21 Consult to Dietitian [CONS] Routine Reason for Dietitian: Other Consult Comment: admit screen 06/13/17 11:33 Consult to Physician [CONS] Routine Comment: Consulting Provider: Ervin Angelo Consulting Provider Notified: Yes When should Consulting Provider be notified: Now Consult to Specialist Group: Pain Management When should Consulting Provider be notified: Now Person Notified: MIRACLE Date Notified: 06/13/17 Time Notified: 11:35 Discharging clinician: Juan Pablo Bowens MD
[2017-06-14] MEDS ORDERED: HEPARIN LOCK FLUSH 500 UNIT/5 ML SYRINGE IV ONE (10:15)
[2017-06-14 10:43] VITALS: BP 140/86
[2017-06-14] MEDS ORDERED: HEPARIN LOCK FLUSH 500 UNIT/5 ML SYRINGE IV PRN (11:21)
== END 2017-06-14 12:00 | disposition home or self-care (01) | DRG 392 ==
LOC: N.ED 08:45 → N.4E 08:49 → N.ED 08:50 → N.4E 08:51
PROVIDERS: ADMIT Specialist; ATTEND Specialist

== ENCOUNTER 2017-11-21 15:44 | Inpatient (IN) ==
[2017-11-21 16:44] LABS: Apearance,Urine Slightly Hazy (Clear); Bacteria,Urine Occasional /HPF (Few); Bilirubin,Urine Negative (Negative); Blood, Urine Small mg/dL (Negative); Glucose,Urine (UA) 50 mg/dL (Negative); Ketones,Urine Negative (Negative); Mucus,Urine Occasional /LPF (Occasional); Nitrite,Urine Negative (Negative); Protein,Urine 100 MG/DL; RBC,Urine 4 /HPF (0-4); Squamous Epithelial Cell,Urine Occasional /HPF (0-10); Urine Color Yellow (Yellow); Urine Specific Gravity 1.015 (1.001-1.035); Urine Urobilinogen < 2.0 EU/DL (0.2-1.0); WBC,Urine 12 /HPF (0-6)
[2017-11-21] MEDS ORDERED: SODIUM CHLORIDE 0.9% 1,000 ML IV STA (16:44)
[2017-11-21 17:51] LABS: Lactic Acid 0.7 MMOL/L (0.4-2.0)
[2017-11-21 17:53] LABS: Alanine Aminotransferase < 9 U/L (13-56); Albumin 3.2 G/DL (3.4-5.0); Alkaline Phosphatase 94 U/L (45-117); Amylase 88 U/L (25-115); Aspartate Amino Transferase 14 U/L (0-37); Bilirubin,Total < 0.39 MG/DL (0.2-1.0); Blood Urea Nitrogen 32 MG/DL (7-18); Calcium 7.5 MG/DL (8.5-10.1); Glucose 87 MG/DL (74-106); Osmolality,Calculated 282.5 MOS/KG (273-304); Potassium 3.3 MMOL/L (3.5-5.1); Sodium 139 MMOL/L (136-145); Total Protein 7.5 G/DL (6.4-8.3)
[2017-11-21 17:56] LABS: Basophils % 0.6 % (0.0-0.8); Eosinophils # 0.2 10*3/uL (0.0-0.87); Eosinophils % 3.2 % (0.00-10.9); Hematocrit 28.9 VOL% (35.7-47.0); Hemoglobin 9.6 GM/DL (12.0-16.0); Immature Granulocytes % 7.9 %; Immature Granulocytes Absolute 0.55 #; Lymphocytes # 3.5 10*3/uL (1.4-4.0); Mean Corpuscular HGB Conc 33.2 GM/DL (32-36); Mean Corpuscular Hemoglobin 27 PG (27-34); Mean Corpuscular Volume 81.6 FL (87-102); Mean Platelet Volume 9.7 FL (9.6-12.0); Monocytes # 0.9 10*3/uL (0.11-0.8); Monocytes % 12.4 % (1.7-12.7); Neutrophils # 1.8 10*3/uL (1.4-7.4); Neutrophils % 25.9 % (38.7-73.9); Platelet Count 241 T/CUMM (130-400); Red Blood Count 3.54 MC/CUMM (3.8-5.5); Red Cell Distribution Width 18.5 % (9.3-17.3); White Blood Count 6.9 T/CUMM (4-12)
[2017-11-21] MEDS ORDERED: ONDANSETRON 4 MG/2 ML VIAL IV PRN (18:44)
[2017-11-21 18:48] LABS: Anisocytosis 1+; Band Neutrophils 1 % (0-10); Eosinophils 3 % (0-10); Lymphocytes 56 % (20-55); Microcytosis Slight; Ovalocytes Few; Platelet Estimate Adequate; Poikilocytosis 1+; Segmented Neutrophils 27 % (50-85); Tear Drop Cells Few; Total Cells Counted 100
[2017-11-21 18:49] LABS: Schistocytes Slight
[2017-11-21 18:50] LABS: Target Cells Slight
[2017-11-21] MEDS: SODIUM CHLORIDE 0.9% 1,000 ML IV SCH (20:14)
[2017-11-21] MEDS ORDERED: CALCIUM GLUCONATE 2,000 MG in SODIUM CHLORIDE 0.9% 100 ML IV ONE (20:24)
[2017-11-21] MEDS ORDERED: MAGNESIUM SULF RIDER 1 GM in PREMIX 1 EACH IV ONE (20:24)
[2017-11-21] MEDS ORDERED: amLODIPine 5 MG TABLET PO ONE (20:31)
[2017-11-21] MEDS: MORPHINE 2 MG/1 ML SYRINGE IV PRN (20:47)
[2017-11-21] MEDS: CIPROFLOXACIN INJ 400 MG in PREMIX 1 EACH IV SCH (21:13)
[2017-11-22 00:41] LABS: Barbiturates Screen,Urine Negative (Negative); Benzodiazepines Screen,Urine Negative (Negative); Cannabinoid Screen,Urine Negative (Negative); Opiate Screen,Urine Positive (Negative); Phencyclidine Screen,Urine Negative (Negative)
[2017-11-22] MEDS: MORPHINE 2 MG/1 ML SYRINGE IV PRN ×2 (02:46→13:51)
[2017-11-22 06:27] LABS: Basophils % 0.4 % (0.0-0.8); Eosinophils # 0.2 10*3/uL (0.0-0.87); Eosinophils % 4.3 % (0.00-10.9); Hematocrit 26.2 VOL% (35.7-47.0); Hemoglobin 9.2 GM/DL (12.0-16.0); Immature Granulocytes % 9.8 %; Immature Granulocytes Absolute 0.53 #; Lymphocytes # 2.4 10*3/uL (1.4-4.0); Mean Corpuscular HGB Conc 35.1 GM/DL (32-36); Mean Corpuscular Hemoglobin 28 PG (27-34); Mean Corpuscular Volume 79.2 FL (87-102); Mean Platelet Volume 9.6 FL (9.6-12.0); Monocytes # 0.8 10*3/uL (0.11-0.8); Monocytes % 13.9 % (1.7-12.7); Neutrophils # 1.4 10*3/uL (1.4-7.4); Neutrophils % 26.6 % (38.7-73.9); Platelet Count 203 T/CUMM (130-400); Red Blood Count 3.31 MC/CUMM (3.8-5.5); Red Cell Distribution Width 18.5 % (9.3-17.3); White Blood Count 5.4 T/CUMM (4-12)
[2017-11-22] MEDS: SODIUM CHLORIDE 0.9% 1,000 ML IV SCH ×3 (06:42→16:40)
[2017-11-22 06:48] LABS: Eosinophils 13 % (0-10); Lymphocytes 42 % (20-55); Segmented Neutrophils 35 % (50-85); Total Cells Counted 100
[2017-11-22 06:49] LABS: Hypochromasia 1+; Microcytosis 1+; Platelet Estimate Normal; Tear Drop Cells Slight
[2017-11-22 06:58] LABS: Alanine Aminotransferase < 9 U/L (13-56); Albumin 2.6 G/DL (3.4-5.0); Alkaline Phosphatase 79 U/L (45-117); Aspartate Amino Transferase 9 U/L (0-37); Blood Urea Nitrogen 23 MG/DL (7-18); Calcium 7.5 MG/DL (8.5-10.1); Glucose 76 MG/DL (74-106); Osmolality,Calculated 283.3 MOS/KG (273-304); Potassium 3.1 MMOL/L (3.5-5.1); Sodium 141 MMOL/L (136-145); Total Protein 6.2 G/DL (6.4-8.3)
[2017-11-22] MEDS ORDERED: POTASSIUM CHLORIDE 20 MEQ TABLET PO ONE ×2 (09:13→10:00)
[2017-11-22] MEDS ORDERED: POTASSIUM CHLORIDE 20 MEQ TABLET PO PRN (10:34)
[2017-11-22] MEDS: CIPROFLOXACIN INJ 400 MG in PREMIX 1 EACH IV SCH (16:38)
[2017-11-22] MEDS: traMADol 50 MG TABLET PO PRN ×2 (16:38→22:46)
[2017-11-22] MEDS: ZALEPLON 5 MG CAPSULE PO PRN (20:12)
[2017-11-23] MEDS: SODIUM CHLORIDE 0.9% 1,000 ML IV SCH ×2 (02:13→10:40)
[2017-11-23] MEDS: MORPHINE 2 MG/1 ML SYRINGE IV PRN ×2 (02:27→17:38)
[2017-11-23 06:16] LABS: Basophils % 0.6 % (0.0-0.8); Eosinophils # 0.2 10*3/uL (0.0-0.87); Eosinophils % 3.2 % (0.00-10.9); Hematocrit 26.5 VOL% (35.7-47.0); Hemoglobin 9.4 GM/DL (12.0-16.0); Immature Granulocytes % 3.9 %; Immature Granulocytes Absolute 0.21 #; Lymphocytes # 2.8 10*3/uL (1.4-4.0); Lymphocytes % 52.2 % (21.3-54.2); Mean Corpuscular HGB Conc 35.5 GM/DL (32-36); Mean Corpuscular Hemoglobin 28 PG (27-34); Mean Corpuscular Volume 78.6 FL (87-102); Mean Platelet Volume 9.7 FL (9.6-12.0); Monocytes # 0.6 10*3/uL (0.11-0.8); Monocytes % 10.3 % (1.7-12.7); Neutrophils # 1.6 10*3/uL (1.4-7.4); Neutrophils % 29.8 % (38.7-73.9); Platelet Count 170 T/CUMM (130-400); Red Blood Count 3.37 MC/CUMM (3.8-5.5); Red Cell Distribution Width 18.2 % (9.3-17.3); White Blood Count 5.3 T/CUMM (4-12)
[2017-11-23 06:42] LABS: Eosinophils 9 % (0-10); Lymphocytes 45 % (20-55); Segmented Neutrophils 38 % (50-85); Total Cells Counted 100
[2017-11-23 06:43] LABS: Giant Platelets Few; Hypochromasia 1+; Microcytosis Slight; Platelet Estimate Normal
[2017-11-23 06:49] LABS: Calcium 7.3 MG/DL (8.5-10.1); Potassium 3.8 MMOL/L (3.5-5.1)
[2017-11-23] MEDS ORDERED: MAGNESIUM SULF RIDER 2 GM in PREMIX 1 EACH IV PRN (07:51)
[2017-11-23] MEDS ORDERED: MAGNESIUM SULF RIDER 4 GM in PREMIX 1 EACH IV PRN (07:51)
[2017-11-23] MEDS: traMADol 50 MG TABLET PO PRN ×2 (08:12→14:41)
[2017-11-23] MEDS: CIPROFLOXACIN INJ 400 MG in PREMIX 1 EACH IV SCH (08:13)
[2017-11-23] MEDS: IBUPROFEN 400 MG TABLET PO PRN ×2 (10:40→20:10)
[2017-11-23] MEDS: ACYCLOVIR INJ 500 MG in SODIUM CHLORIDE 0.9% 100 ML IV SCH (16:18)
[2017-11-23] MEDS: ZALEPLON 5 MG CAPSULE PO PRN (20:10)
[2017-11-23] MEDS ORDERED: CIPROFLOXACIN INJ 400 MG in PREMIX 1 EACH IV SCH (21:00)
[2017-11-24] MEDS: SODIUM CHLORIDE 0.9% 1,000 ML IV SCH ×4 (00:15→23:17)
[2017-11-24] MEDS: traMADol 50 MG TABLET PO PRN ×4 (00:15→16:28)
[2017-11-24] MEDS: ACYCLOVIR INJ 500 MG in SODIUM CHLORIDE 0.9% 100 ML IV SCH ×3 (00:37→16:29)
[2017-11-24] MEDS: MORPHINE 2 MG/1 ML SYRINGE IV PRN ×4 (01:29→23:16)
[2017-11-24] MEDS: IBUPROFEN 400 MG TABLET PO PRN ×3 (04:38→14:41)
[2017-11-24] MEDS: amLODIPine 5 MG TABLET PO SCH (09:17)
[2017-11-24] MEDS: ZALEPLON 5 MG CAPSULE PO PRN (19:50)
[2017-11-25] MEDS: ACYCLOVIR INJ 500 MG in SODIUM CHLORIDE 0.9% 100 ML IV SCH ×2 (00:37→09:06)
[2017-11-25] MEDS: IBUPROFEN 400 MG TABLET PO PRN (01:45)
[2017-11-25] MEDS: traMADol 50 MG TABLET PO PRN (03:57)
[2017-11-25 08:08] VITALS: BP 151/90
[2017-11-25] MEDS: amLODIPine 5 MG TABLET PO SCH (09:06)
[2017-11-25] MEDS: MORPHINE 2 MG/1 ML SYRINGE IV PRN (09:13)
== END 2017-11-25 12:36 | disposition home health service (06) | DRG 841 ==
LOC: N.2E 15:44 → N.ED 15:44 → N.2E 19:36
PROVIDERS: ADMIT Internal Medicine Geriatric Medicine; ATTEND Internal Medicine Geriatric Medicine

== ENCOUNTER 2017-12-23 07:36 | Observation (INO) ==
[2017-12-23 08:48] LABS: Basophils % 0.2 % (0.0-0.8); Eosinophils # 0.2 10*3/uL (0.0-0.87); Hematocrit 23.1 VOL% (35.7-47.0); Hemoglobin 7.7 GM/DL (12.0-16.0); Immature Granulocytes % 2.8 %; Immature Granulocytes Absolute 0.27 #; Lymphocytes # 6.3 10*3/uL (1.4-4.0); Lymphocytes % 65.5 % (21.3-54.2); Mean Corpuscular HGB Conc 33.3 GM/DL (32-36); Mean Corpuscular Hemoglobin 27 PG (27-34); Mean Corpuscular Volume 80.2 FL (87-102); Mean Platelet Volume 9.6 FL (9.6-12.0); Monocytes # 0.2 10*3/uL (0.11-0.8); Monocytes % 1.6 % (1.7-12.7); Neutrophils # 2.7 10*3/uL (1.4-7.4); Neutrophils % 27.9 % (38.7-73.9); Platelet Count 285 T/CUMM (130-400); Red Blood Count 2.88 MC/CUMM (3.8-5.5); Red Cell Distribution Width 20.4 % (9.3-17.3); White Blood Count 9.7 T/CUMM (4-12)
[2017-12-23 09:00] LABS: Eosinophils 5 % (0-10); Giant Platelets Few; Hypochromasia 1+; Lymphocytes 72 % (20-55); Platelet Estimate Adequate; Segmented Neutrophils 22 % (50-85); Total Cells Counted 100
[2017-12-23 09:01] LABS: Atypical Lymphocytes Few; Microcytosis Slight; Ovalocytes Slight
[2017-12-23 09:15] LABS: Lactic Acid 0.9 MMOL/L (0.4-2.0)
[2017-12-23 09:24] LABS: Alanine Aminotransferase < 9 U/L (13-56); Albumin 3.2 G/DL (3.4-5.0); Alkaline Phosphatase 71 U/L (45-117); Aspartate Amino Transferase 13 U/L (0-37); Bilirubin,Total < 0.39 MG/DL (0.2-1.0); Blood Urea Nitrogen 18 MG/DL (7-18); Calcium 8.5 MG/DL (8.5-10.1); Glucose 83 MG/DL (74-106); Osmolality,Calculated 273.8 MOS/KG (273-304); Potassium 4.2 MMOL/L (3.5-5.1); Sodium 137 MMOL/L (136-145); Total Protein 6.9 G/DL (6.4-8.3)
[2017-12-23 10:28] LABS: Apearance,Urine CLOUDY (Clear); Bacteria,Urine Occasional /HPF (Few); Bilirubin,Urine Negative (Negative); Blood, Urine Negative (Negative); Glucose,Urine (UA) Negative (Negative); Ketones,Urine Negative (Negative); Nitrite,Urine Negative (Negative); Protein,Urine 30 MG/DL; RBC,Urine 4 /HPF (0-4); Squamous Epithelial Cell,Urine Moderate /HPF (0-10); Urine Color Yellow (Yellow); Urine Specific Gravity 1.016 (1.001-1.035); Urine Urobilinogen < 2.0 EU/DL (0.2-1.0); WBC,Urine 2 /HPF (0-6)
[2017-12-23] MEDS ORDERED: ONDANSETRON 4 MG/2 ML VIAL IV PRN (11:08)
[2017-12-23] MEDS ORDERED: ACETAMINOPHEN 325 MG TABLET PO PRN (11:08)
[2017-12-23] MEDS ORDERED: SODIUM CHLORIDE 0.9% 1,000 ML IV PRN ×2 (11:16→11:22)
[2017-12-23] MEDS ORDERED: MAGNESIUM HYDROXIDE SUSP 30 ML UDCUP PO PRN (13:34)
[2017-12-23] MEDS: SODIUM CHLORIDE 0.9% 1,000 ML IV SCH (14:27)
[2017-12-23] MEDS: PANTOPRAZOLE 40 MG TABLET PO SCH (14:27)
[2017-12-23] MEDS ORDERED: traZODone 50 MG TABLET PO SCH (21:00)
[2017-12-24 05:31] LABS: Basophils % 0.6 % (0.0-0.8); Eosinophils # 0.2 10*3/uL (0.0-0.87); Eosinophils % 2.5 % (0.00-10.9); Hematocrit 31.5 VOL% (35.7-47.0); Immature Granulocytes % 4.3 %; Immature Granulocytes Absolute 0.28 #; Lymphocytes % 60.9 % (21.3-54.2); Mean Corpuscular HGB Conc 33.3 GM/DL (32-36); Mean Corpuscular Hemoglobin 28 PG (27-34); Mean Corpuscular Volume 82.9 FL (87-102); Monocytes # 0.1 10*3/uL (0.11-0.8); Monocytes % 1.7 % (1.7-12.7); Platelet Count 221 T/CUMM (130-400); Red Cell Distribution Width 18.6 % (9.3-17.3); White Blood Count 6.5 T/CUMM (4-12)
[2017-12-24 05:45] LABS: Hemoglobin 10.5 GM/DL (12.0-16.0)
[2017-12-24 05:55] LABS: Calcium 7.8 MG/DL (8.5-10.1); Osmolality,Calculated 279.3 MOS/KG (273-304); Potassium 3.9 MMOL/L (3.5-5.1)
[2017-12-24 06:12] LABS: Vitamin B12 794 PG/ML (211-911)
[2017-12-24 06:17] LABS: Eosinophils 1 % (0-10); Hypochromasia 1+; Lymphocytes 68 % (20-55); Platelet Estimate Adequate; Segmented Neutrophils 28 % (50-85); Total Cells Counted 100
[2017-12-24 06:18] LABS: Atypical Lymphocytes Few; Giant Platelets Few; Microcytosis Slight
[2017-12-24 06:55] LABS: % Iron Saturation 43.3 % (18-50); Ferritin 278.6 ng/ml (8-252)
[2017-12-24 08:19] VITALS: BP 141/83
[2017-12-24 08:41] LABS: Sedimentation Rate-Westergren 60 MM/HR (0-30)
[2017-12-24] MEDS ORDERED: IBRUTINIB 420 MG PO SCH (09:00)
[2017-12-24] MEDS ORDERED: amLODIPine 5 MG TABLET PO SCH (09:00)
[2017-12-24] MEDS: PANTOPRAZOLE 40 MG TABLET PO SCH (09:51)
[2017-12-24] MEDS: SODIUM CHLORIDE 0.9% 1,000 ML IV SCH (09:51)
[2017-12-28 18:15] LABS: Variant 16.3 = Hb C %
[2017-12-29 09:26] LABS: Hemoglobin A1 (Alkaline) 80.1 % (96.5-98.5); Hemoglobin A2 (Alkaline) 3.6 % (1.5-3.5); Hemoglobin C (Alkaline) 16.3 %
== END 2017-12-24 09:10 | disposition home or self-care (01) ==
LOC: N.EDINP 07:36 → N.ED 07:36 → SUATTDRO 10:11 → N.2E 10:40
PROVIDERS: ADMIT Internal Medicine Cardiovascular Disease; ATTEND Hospitalist